=== PATIENT | female | born 1965 | race Caucasian/White ===

== ENCOUNTER 2020-01-01 13:47 | Outpatient (CLI) | payer OTHER, SELFPAY ==
[2020-01-01 15:10] LABS: Blood Urea Nitrogen 27 mg/dL (7-17); Carbon Dioxide 25 mmol/L (22-30); Chloride 103 mmol/L (98-107); Cholesterol 175 mg/dL (0-200); Estimated Glomerular Filt Rate 47; Glucose 114 mg/dL (65-105); HDL Direct 59 mg/dL; Potassium 4.2 mmol/L (3.4-5.0); Sodium 142 mmol/L (137-145); Triglycerides 110 mg/dL (<150)
[2020-01-01 15:21] LABS: LDL Cholesterol Direct 84 mg/dL
[2020-01-01 15:44] LABS: Vitamin D 25 Hydroxy 69.9 ng/mL
== END 2020-01-01 13:48 | disposition home or self-care (01) ==
PROVIDERS: PCP Internal Medicine; Visit Provider Internal Medicine
DX: I10 Essential (primary) hypertension (principal); E55.9 Vitamin D deficiency, unspecified; E78.5 Hyperlipidemia, unspecified
CPT/HCPCS: 36415; 80048; 80061; 82306

== ENCOUNTER 2020-11-08 13:13 | Inpatient (IN) | payer OTHER, SELFPAY ==
[2020-11-08] VITALS (26 sets, daily range): BP systolic 90–111; BP diastolic 44–62; PULSE 69–83; RESP 10–24; TEMP 36.4–36.7; O2SAT 92–100; BMI 68.3
--- NOTE | ~2020-11-08 | CT_ITS ---
EXAMINATION: CT abdomen pelvis w con EXAM DATE: 11/08/2020 15:00 INDICATION: Vaginal bleeding. Abnormal ultrasound. TECHNIQUE: Spiral CT of the abdomen and pelvis was performed following intravenous injection of 100 m L Omnipaque 350. Axial, coronal and sagittal images were reviewed. The dose-length product (DLP) fo r this examination was 1724.86 mGy-cm. The exposure was tailored according to patient size (auto mA exposure control), and iterative reconstruction (ASIR) was used as additional dose reduction techniqu e. There is no prior study for comparison. FINDINGS: The liver, spleen, adrenal glands and pancreas are unremarkable. Gallbladder is unremarkab le. No biliary obstruction. Portal and splenic veins are patent. Kidneys enhance symmetrically. T here is no hydronephrosis. Multiple right calyceal stones, largest in an inferior calyx measuring 9 m m. No ureteral stones. Several punctate left calyceal stones. There is moderate chronic appearing rig ht renal atrophy. The uterus is anteverted and morphologically normal. There is an 8 cm left ovarian teratoma, stable or minimally increased in size compared to previous exam. The bladder is unremarka ble. There is no retroperitoneal or pelvic lymphadenopathy. There is mild scattered arteriosclerot ic disease. Small umbilical fat-containing hernia. The appendix is normal. The stomach and small bowel are unremarkable. There is expected amount of c olonic stool. No free intraperitoneal gas. The heart is normal in size. There are no pericardial or pleural effusions. Faint chronic basilar mosaic attenuation unchanged, could be mild air trappin g. There are no osteoblastic or osteolytic lesions identified. IMPRESSION: 1. Bilateral nephrolithiasis, larger stone burden on the right. 2. Chronic moderate right renal atrophy. 3. Left ovarian dermoid. 4. Small hiatal hernia. 5. Small umbilical hernia. Reviewed, dictated and finalized at location A. CT MARKETING REPRESENTATIVE
--- NOTE | ~2020-11-08 | US_ITS ---
EXAMINATION: US pelvic complete DATE: 11/08/2020 14:31 INDICATION: Vaginal bleeding. History of oophorectomy, although patient is unsure which ovary was rem daniella. Comparison:Ultrasound dated 06/25/2017 TECHNIQUE: Multiple transabdominal sonographic images of the pelvis performed. FINDINGS: The uterus measures 7.9 x 3.8 x 3.6 cm. Study is extremely limited by patient body habitus. The endometrium is not visualized for measurement. The ovaries are not identified,. There is a hypoechoic structure in the left adnexa measuring 6.1 x 6 x 5.1 cm, possibly ovarian. This mass is not well characterized. There is no free fluid in the pelvis. There are no abnormal masses seen on either side. IMPRESSION: 1. Limited examination by patient body habitus. 6.1 cm left adnexal hypoechoic mass, possibly ovarian . Consider correlation with contrast-enhanced CT. Reviewed, dictated and finalized at location A. ND OPERATIONS SUPERINTENDENT IMPRESSION: 1. Limited examination by patient body habitus. 6.1 cm left adnexal hypoechoic mass, possibly ovarian. Consider correlation with contrast-enhanced CT.
--- NOTE | ~2020-11-08 | CT_ITS ---
EXAMINATION: CT BRAIN W/O DATE: 11/08/2020 14:08 INDICATION: Dizziness. History of seizure. Stroke. TECHNIQUE: Computed tomography (CT) of the head was performed without intravenous contrast. The dose- length product was 605.33 mGy-cm. The mA was adjusted according to patient size. Iterative reconstruc tion technique was employed. COMPARISON: No prior studies for comparison. FINDINGS: Normal brain parenchymal volume for age. Normal emmanuel-white differentiation. No acute intrac ranial hemorrhage, infarction, mass or mass effect. No ventriculomegaly or midline shift. Midline sagittal images demonstrate a normal corpus callosum, c raniovertebral junction and sella turcica. Basilar cisterns are patent. Paranasal sinuses and mastoids are pneumatized. No depressed skull fractures. IMPRESSION: 1. No acute intracranial abnormality. Reviewed, dictated and finalized at location A. IAN HISTORY PROFESSOR
[2020-11-08] MEDS: SODIUM CHLORIDE 0.9% IV 1,000 ML 999 ML IV CONT (13:53)
[2020-11-08 14:03] LABS: Basophils Percent Auto 0.4 % (0.2-1.2); Eosinophils Absolute Auto 0.2 K/mm3 (0-0.3); Eosinophils Percent Auto 1.7 % (0-4.4); Immature Granulocyte Absolute 0.04 K/mm3 (0.00-0.031); Immature Granulocyte Percent A 0.4 % (0-0.5); Lymphocytes Absolute Auto 1.29 K/mm3 (0.9-3.2); Lymphocytes Percent Auto 13.6 % (18.3-44.2); Mean Corpuscular HGB Conc 30.5 g/dl (32-36); Mean Corpuscular Hemoglobin 30.8 pg (26-34); Mean Corpuscular Volume 101.2 fl (80-100); Mean Platelet Volume 9.7 fl (7.4-10.4); Monocytes Absolute Auto 0.8 K/mm3 (0.1-0.6); Neutrophils Absolute Auto 7.2 K/mm3 (1.3-6.7); Neutrophils Percent Auto 75.9 % (45.5-73.1); Nucleated Red Blood Cells Perc 0.3 % (0.0-0.2); Platelet Count Result 319 k/mm3 (150-375); Red Blood Count 1.72 M/mm3 (4.2-5.4); Red Cell Distribution Width 14.3 % (11.5-14.5); White Blood Count 9.5 K/mm3 (4.5-10.0)
[2020-11-08 14:06] LABS: Hematocrit 17.4 % (37.0-47.0); Hemoglobin 5.3 g/dL (12.0-15.0)
[2020-11-08 14:11] LABS: Add Urine Microscopic? YES; Appearance Urine Clear (Clear); Bacteria Urine Trace /hpf; Bilirubin Urine Negative (Negative); Blood Urine 1+ (Negative); Color Urine Straw (Yellow); Glucose Urine UA Negative (Negative); Hyaline Casts Urine 20-29 /lpf; Ketones Urine Negative (Negative); Leukocyte Esterase Ur Negative LEU/UL (Negative); Mucus Urine Rare /lpf; Nitrate Urine Negative (Negative); Protein Urine Negative (Negative); Squamous Epithelial Cell Urine Occasional /hpf (Few); Urobilinogen Urine Negative mg/dL (<2.0); WBC Urine 0-3 /hpf
[2020-11-08 14:14] LABS: INR 1.6; Partial Thromboplastin Time 29.1 SECONDS (22.3-36.8); Prothrombin Time 19.8 Seconds (11.1-14.7)
[2020-11-08 14:16] LABS: Alanine Aminotransferase 14 U/L (4-35); Albumin Level 2.9 g/dL (3.5-5.1); Alkaline Phosphatase 60 U/L (38-126); Anion Gap 4 mmol/L (8-16); Aspartate Amino Transferase 33 U/L (14-36); Bilirubin,Total 0.3 mg/dL (0.2-1.3); Blood Urea Nitrogen 30 mg/dL (7-17); Calcium 8.2 mg/dL (8.4-10.2); Carbon Dioxide 28 mmol/L (22-30); Chloride 104 mmol/L (98-107); Estimated CRCL calculation 84 ml/min; Estimated Glomerular Filt Rate 58; Glucose 131 mg/dL (65-105); Potassium 4.8 mmol/L (3.4-5.0); Sodium 136 mmol/L (137-145)
--- NOTE | 2020-11-08 15:09 | PC.NURSE ---
JAIME Downey aware that orthostatic vs have not been taken. He states that they may be deferred to later time
--- NOTE | 2020-11-08 15:56 | ED.ABDPAIN ---
HPI - Abdominal Pain General Chief Complaint: Vaginal Bleeding <Shayan Sauceda PA-C - Last Filed: 11/08/20 17:15> Stated Complaint: Vag bleed <FRENCH Granado Last Filed: 11/08/20 17:15> Time Seen by Provider: 11/08/20 13:18 <FRENCH Granado Last Filed: 11/08/20 17:15> Source: patient, family and EMS <FRENCH Granado Last Filed: 11/08/20 17:15> Mode of arrival: EMS <FRENCH Granado Last Filed: 11/08/20 17:15> Limitations: no limitations <FRENCH Granado Last Filed: 11/08/20 17:15> History of Present Illness HPI narrative: Patient is a 55-year-old female who presents with fatigue and vaginal bleeding over the course of the last month has been going through 2 or 3 pads a day patient is currently on Eliquis patient notes that she has felt slightly lightheaded. Patient is followed by Dr. Agudelo and cardiology patient is on Eliquis for history of pulmonary embolism patient know she has passed clots and had periods of heavier bleeding throughout the month but is currently going through maybe 2 or 3 pads a day patient on arrival denying any pain. Patient denies any syncope injury or trauma or other illnesses presents for EMS from home where she lives with her mother <FRENCH Granado Last Filed: 11/08/20 17:15> Related Data Home Medications: Home Medications Medication Instructions Recorded Confirmed acetaminophen 325 mg capsule 325 mg PO Q6H PRN 12/20/19 apixaban 5 mg tablet 5 mg PO BID 12/20/19 carvedilol phosphate 80 mg 80 mg PO DAILY 12/20/19 capsule,[id number] multiphase cholecalciferol (vitamin D3) 50 2,000 unit PO DAILY 12/20/19 mcg (2,000 unit) capsule furosemide 40 mg tablet 40 mg PO QAM 12/20/19 gabapentin 300 mg capsule 300 mg PO TID 12/20/19 phentermine 37.5 mg tablet 37.5 mg PO DAILY 12/20/19 topiramate 100 mg tablet 200 mg PO DAILY 12/20/19 atorvastatin DAILY 11/08/20 ferrous sulfate mg DAILY 11/08/20 lisinopril DAILY 11/08/20 <Shayan Sauceda PA-C - Last Filed: 11/08/20 17:15> Allergies/Adverse Reactions: Allergies Allergy/AdvReac Type Severity Reaction Status Date / Time latex Allergy Intermediate Hives Verified 11/08/20 13:19 <Shayan Sauceda PA-C - Last Filed: 11/08/20 17:15> Review of Systems Review of Systems: All systems reviewed & are unremarkable except as noted in HPI and below <Shayan Sauceda PA-C - Last Filed: 11/08/20 17:15> [facility] Social History Social History: Social History Smoking status: Never smoker Alcohol intake: never Gender identity (if verbalized by the patient): Female <Shayan Sauceda PA-C - Last Filed: 11/08/20 17:15> Exam Narrative: Exam Narrative: GENERAL: Well-appearing, morbidly obese, and in no acute distress. HEAD: Normocephalic, atraumatic. EYES: PERRLA and EOMI. ENT: Nares clear, no rhinorrhea or epistaxis. Mucous membranes moist. CHEST: Clear to auscultation. No respiratory distress. No wheezes rales or rhonchi HEART: Regular rate and rhythm. No murmur heard. Normal peripheral pulses. ABDOMEN: Soft, nontender, nondistended FEMALE GENITOURINARY: No heavy vaginal bleeding noted EXTREMITIES: Normal range of motion. No edema. SKIN: Warm, dry, no rash. NEURO: No focal deficits. Alert and oriented x3. PSYCH: Normal mood and affect. <Shayan Sauceda PA-C - Last Filed: 11/08/20 17:15> Course Course Emergency Course: Patient in the room in no distress has been transfused blood in the emergency department for her anemia likely attributed to her vaginal bleeding discussions were made with gynecology cardiology and hospitalist service patient will be having her Eliquis held will be admitted by the hospitalist and will be evaluated by gynecology. Patient hemodynamically stable in no distress at this time agreeing to stay in hospital <JAIME Granado
[2020-11-08] MEDS: SODIUM CHLORIDE 0.9% IV 250 ML 30 ML IV CONT (16:01)
[2020-11-08] MEDS: TUBING, BLOOD SET 1 EACH XX (16:01)
--- NOTE | 2020-11-08 18:02 | PC.NURSE ---
pt carlie unit #1 well without s/s transfusion reaction.
--- NOTE | 2020-11-08 18:43 | PC.NURSE ---
1830-attempted to call report to 2 medical. informed rn busy in pt room. informed rn will call back in 5 mins. 184-have not rec'd call back from 2nd medical. pt awaiting meal to be delivered to ed room 19. unit 1 complete without reaction or difficulties. unit 2 to be started after transport to floor.
--- NOTE | 2020-11-08 19:03 | PC.NURSE ---
report call to juan qiu at this time. will transport to floor at approx 1930
--- NOTE | 2020-11-08 20:01 | ADMGEN ---
This patient, Phoebe Blakcburn, was admitted to Medical Room 244-01 at 1999. Patient/family oriented to hospital policies and general routines including ID bracelet, bed and alarms, visiting hours, pain management, procedures, bathroom and other care routines, personal items, smoking policy, room service/diet, and visiting hours. Information on how to activate the Rapid Response Team has been discussed. Patient/Family are encouraged to report perceived risks to care and to ask questions if they do not understand what they are told or what they should do.
[2020-11-08] MEDS: SODIUM CHLORIDE 0.9% IV 100 ML 30 ML (21:25)
[2020-11-08] MEDS: FAMOTIDINE 20 MG/2 ML VIAL IV PUSH (23:09)
[2020-11-09] VITALS (11 sets, daily range): BP systolic 92–116; BP diastolic 44–72; PULSE 71–83; RESP 16–21; TEMP 36.1–37.1; O2SAT 98–100
[2020-11-09 05:58] LABS: Basophils Absolute Auto 0.1 K/mm3 (0.0-0.1); Basophils Percent Auto 0.7 % (0.2-1.2); Eosinophils Absolute Auto 0.2 K/mm3 (0-0.3); Eosinophils Percent Auto 2.6 % (0-4.4); Hematocrit 21.6 % (37.0-47.0); Immature Granulocyte Absolute 0.04 K/mm3 (0.00-0.031); Immature Granulocyte Percent A 0.5 % (0-0.5); Lymphocytes Absolute Auto 2.47 K/mm3 (0.9-3.2); Lymphocytes Percent Auto 27.8 % (18.3-44.2); Mean Corpuscular HGB Conc 31.9 g/dl (32-36); Mean Corpuscular Hemoglobin 30.7 pg (26-34); Mean Platelet Volume 9.5 fl (7.4-10.4); Monocytes Absolute Auto 1.1 K/mm3 (0.1-0.6); Neutrophils Percent Auto 56.4 % (45.5-73.1); Nucleated Red Blood Cells Perc 0.3 % (0.0-0.2); Platelet Count Result 309 k/mm3 (150-375); Red Blood Count 2.25 M/mm3 (4.2-5.4); Red Cell Distribution Width 15.4 % (11.5-14.5); White Blood Count 8.9 K/mm3 (4.5-10.0)
[2020-11-09 06:03] LABS: Hemoglobin 6.9 g/dL (12.0-15.0)
[2020-11-09 06:23] LABS: Alanine Aminotransferase 11 U/L (4-35); Albumin Level 2.6 g/dL (3.5-5.1); Alkaline Phosphatase 64 U/L (38-126); Anion Gap 1 mmol/L (8-16); Aspartate Amino Transferase 23 U/L (14-36); Bilirubin,Total 0.3 mg/dL (0.2-1.3); Blood Urea Nitrogen 24 mg/dL (7-17); Calcium 7.9 mg/dL (8.4-10.2); Carbon Dioxide 31 mmol/L (22-30); Chloride 106 mmol/L (98-107); Estimated CRCL calculation 92 ml/min; Estimated Glomerular Filt Rate > 60; Glucose 113 mg/dL (65-105); Potassium 4.1 mmol/L (3.4-5.0); Sodium 138 mmol/L (137-145)
[2020-11-09] MEDS: SODIUM CHLORIDE 0.9% IV 250 ML 30 ML IV CONT (07:00)
[2020-11-09] MEDS: THERAPEUTIC MULTIVITAMINS/MINERALS TAB (*BKC) 1 TABLET PO (09:33)
[2020-11-09] MEDS: CHOLECALCIFEROL 1,000 UNITS TABLET 2000 UNITS PO (09:33)
[2020-11-09] MEDS: ATORVASTATIN 40 MG TABLET PO (09:34)
[2020-11-09] MEDS: FUROSEMIDE 40 MG TABLET PO (09:34)
[2020-11-09] MEDS: GABAPENTIN 100 MG CAPSULE PO ×3 (09:34→16:54)
[2020-11-09] MEDS: FAMOTIDINE 20 MG/2 ML VIAL IV PUSH ×2 (09:35→20:06)
--- NOTE | 2020-11-09 09:36 | WPDCN ---
Assessment and Plan Assessment and plan (1) Postmenopausal bleeding: Code(s): N95.0 - Postmenopausal bleeding Status: Acute (2) Ovarian mass: Code(s): N83.8 - Other noninflammatory disorders of ovary, fallopian tube and broad ligament Status: Acute Additional Plan 1. Agree with stopping Eliquis at this point. Restarting a will be deferred per Cardiology/ hospitalist. 2. Provera 10 mg b.i.d. to be continued for 10 days. 3. Will need endometrial sampling in the office in the next 7-14 days. I discussed with the patient at length she states good understanding and agrees to call otherwise meds office early this week upon discharge to set this appointment up. If she encounters any issues with this or difficulty having it done and a short period of time she is to call my office and we will of facilitate getting this procedure performed for her. 4. After endometrial sampling will likely need referral to manager credit collections Oncology as she is certainly a great risk for endometrial hyperplasia and/or endometrial cancer. At that time I would suspect that the ovary will be dealt with as well. Again I discussed this at length with the patient she states good understanding and agrees to have this process initiated in the very near future so she can have this problem taking care of and stabilize her condition. HPI Data of Consult Date/Time: 11/09/20 09:36 Requesting Physician: Erik Rivera MD Primary Care Provider: Yamil Rankin DO Consult Narrative Narrative: Phoebe Blackburn is a 55 year old female admitted for vaginal bleeding and anemia. She states that she became menopausal in 2017 during which she only had spotting during that year which her customizer attributed to her Eliquis medication. Beginning in 2018 she began to have what she considered regular periods and this has continued until current. Especially over the last 4-6 weeks has increased in amount. She does also relate symptoms from her anemia as far as shortness of breath clotting mentation and fatigue which also she states she does have under fairly regular basis as well. Regarding prior gynecologic issues she states she did have and ablation which I am not sure was in endometrial ablation or uterine artery embolization. Regardless she states [facility] provider that performed the procedure stated it did not go as well as they had hoped and her bleeding did improve but did not stop. She has no history of childbearing. 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 CT scan on admission shows a ovarian tumor but this is unchanged from 2017. She states that since being admitted for bleeding seems to have slowed down though she is still passing small clots. Review of Systems Review of Systems: All systems reviewed & are unremarkable except as noted in HPI and below PMFSH Family History Family History Other Unknown family medical history Social History Social History Smoking status: Never smoker Alcohol intake: never Substance use: never Substance use type: does not use Gender identity (if verbalized by the patient): Female Spiritual care concerns: No Meds Home Medications and Allergies Home Medications Medication Instructions Recorded Confirmed Type apixaban 5 mg tablet 5 mg PO BID 12/20/19 11/08/20 History carvedilol phosphate 80 mg 80 mg PO DAILY 12/20/19 11/08/20 History capsule,[id number] multiphase cholecalciferol (vitamin D3) 50 2,000 unit PO DAILY 12/20/19 11/08/20 History mcg (2,000 unit) capsule furosemide 40 mg tablet 40 mg PO QAM 12/20/19 11/08/20 History phentermine 37.5 mg tablet 37.5 mg PO DAILY 12/20/19 11/08/20 History topiramate 100 mg tablet 200 mg PO HS 12/20/19 11/08/20 History atorvastatin 40 mg DAILY 11/08/20 11/08/20 History ferrous sulfate 325
[2020-11-09 12:56] LABS: Hematocrit 24.8 % (37.0-47.0); Hemoglobin 8.1 g/dL (12.0-15.0); Mean Corpuscular HGB Conc 32.7 g/dl (32-36); Mean Platelet Volume 9.4 fl (7.4-10.4); Platelet Count Result 295 k/mm3 (150-375); Red Blood Count 2.61 M/mm3 (4.2-5.4); Red Cell Distribution Width 15.5 % (11.5-14.5); White Blood Count 7.7 K/mm3 (4.5-10.0)
--- NOTE | 2020-11-09 16:51 | PM.IMHP ---
H&P: HPI History of Present Illness Date/Time: 11/09/20 16:51 Chief Complaint: Lightheadedness with vaginal bleeding Narrative: Date of visit 11/09/2020 0900. Phoebe Blackburn is a 55 year old female G0 para 0 with hypertension and history of postmenopausal bleeding. She had had a uterine ablation in distant past and was hospitalized here in 2017 for vaginal bleeding and transferred to [place] for possible arterial embolization. States she has had spotting intermittently since that time on anticoagulants but in August and September of this year had full 7 day periods with heavy flow. Early October menstrual flow started again with clotting and has persisted. She is feeling lightheaded, had was pounding, and some shortness of breath so she contacted the ambulance and came to the hospital for evaluation where she was found to have a hemoglobin of 5.9. She is admitted for transfusion and evaluation. Review of Systems Review of Systems: Narrative: Constitutional weight has been steady appetite good with no fever chills Eye no double vision scotoma Mouth no pharyngitis laryngitis Pulmonary no wheezing or cough CV no chest pain or palpitation GI no melena hematochezia or diarrhea no dysuria no hematuria Muscle skeletal no particular joint discomfort Integument no skin breakdown or rashes Neuropsych no seizures no syncope PMFSH Past Medical History Medical History (Updated 11/09/20 @ 16:59 by Erik Rivera MD) Anemia Hx of renal calculi Hyperlipidemia, unspecified Hypertension Lymphedema, not elsewhere classified Ovarian mass Personal history of pulmonary embolism Surgical History Surgical History (Updated 11/09/20 @ 16:59 by Erik Rivera MD) History of oophorectomy, unilateral S/P patent foramen ovale closure Family History Family History (Updated 11/09/20 @ 17:01 by Erik Rivera MD) Mother Carcinoma of colon Father , Age 85, Lewy body dementia Lewy body dementia Other Unknown family medical history Social History Social History (Updated 11/09/20 @ 17:02 by rEik Rivera MD) Social History: Never and lives with her mother Smoking status: Never smoker Alcohol intake: never Substance use: never Substance use type: does not use Gender identity (if verbalized by the patient): Female Spiritual care concerns: No Meds Home Medications and Allergies Home Medications Medication Instructions Recorded Confirmed Type apixaban 5 mg tablet 5 mg PO BID 12/20/19 11/08/20 History carvedilol phosphate 80 mg 80 mg PO DAILY 12/20/19 11/08/20 History capsule,[id number] multiphase cholecalciferol (vitamin D3) 50 2,000 unit PO DAILY 12/20/19 11/08/20 History mcg (2,000 unit) capsule furosemide 40 mg tablet 40 mg PO QAM 12/20/19 11/08/20 History phentermine 37.5 mg tablet 37.5 mg PO DAILY 12/20/19 11/08/20 History topiramate 100 mg tablet 200 mg PO HS 12/20/19 11/08/20 History atorvastatin 40 mg DAILY 11/08/20 11/08/20 History ferrous sulfate 325 mg PO DAILY 11/08/20 11/08/20 History gabapentin 100 mg PO TID 11/08/20 11/08/20 History lisinopril 40 mg PO DAILY 11/08/20 11/08/20 History [id number]-Oa-asqz-minerals 1 tablet PO DAILY 11/08/20 11/08/20 History [Women's Multiple Vitamins] tramadol 50 mg tablet 50 mg PO Q8H PRN #90 tablet 11/08/20 11/08/20 Rx Allergies Allergy/AdvReac Type Severity Reaction Status Date / Time latex Allergy Intermediate Hives Verified 11/08/20 13:19 Vital Signs Vital Signs - 24 hr 11/08/20 17:00 11/08/20 17:16 11/08/20 17:59 Temperature 36.6 C 36.6 C 36.6 C Pulse Rate 83 74 69 Respiratory Rate 20 15 15 Blood Pressure 97/47 L 100/45 L 92/53 L Pulse Oximetry 97 100 97 11/08/20 18:55 11/08/20 21:25 11/08/20 21:40 Temperature 36.4 C 36.6 C Pulse Rate 69 75 80 Respiratory Rate 14 20 20 Blood Pressure 102/44 L 94/48 L 92/50 L Pulse Oximetry 95 98 98 11/08/20 22:25 11/08/20 23:25 11/09/20 00
[2020-11-09] MEDS: TOPIRAMATE 100 MG TABLET 200 MG PO (20:11)
[2020-11-09] MEDS: ACETAMINOPHEN 325 MG TABLET 650 MG PO (20:15)
[2020-11-10] MEDS: ACETAMINOPHEN 325 MG TABLET 650 MG PO (05:30)
[2020-11-10 06:00] VITALS: BP 117/67; PULSE 73; RESP 20; TEMP 36.8; O2SAT 99
[2020-11-10 06:06] LABS: Basophils Absolute Auto 0.1 K/mm3 (0.0-0.1); Basophils Percent Auto 0.6 % (0.2-1.2); Eosinophils Absolute Auto 0.3 K/mm3 (0-0.3); Eosinophils Percent Auto 3.5 % (0-4.4); Hematocrit 26.9 % (37.0-47.0); Hemoglobin 8.3 g/dL (12.0-15.0); Immature Granulocyte Absolute 0.05 K/mm3 (0.00-0.031); Immature Granulocyte Percent A 0.6 % (0-0.5); Lymphocytes Absolute Auto 1.66 K/mm3 (0.9-3.2); Lymphocytes Percent Auto 20.8 % (18.3-44.2); Mean Corpuscular HGB Conc 30.9 g/dl (32-36); Mean Corpuscular Hemoglobin 30.3 pg (26-34); Mean Corpuscular Volume 98.2 fl (80-100); Mean Platelet Volume 9.3 fl (7.4-10.4); Monocytes Absolute Auto 0.8 K/mm3 (0.1-0.6); Monocytes Percent Auto 9.7 % (2.6-8.5); Neutrophils Absolute Auto 5.2 K/mm3 (1.3-6.7); Neutrophils Percent Auto 64.8 % (45.5-73.1); Nucleated Red Blood Cells Perc 0.3 % (0.0-0.2); Platelet Count Result 323 k/mm3 (150-375); Red Blood Count 2.74 M/mm3 (4.2-5.4); Red Cell Distribution Width 15.6 % (11.5-14.5)
[2020-11-10 06:34] LABS: Anion Gap 2 mmol/L (8-16); Blood Urea Nitrogen 20 mg/dL (7-17); Calcium 8.1 mg/dL (8.4-10.2); Carbon Dioxide 31 mmol/L (22-30); Chloride 105 mmol/L (98-107); Estimated CRCL calculation 92 ml/min; Estimated Glomerular Filt Rate > 60; Glucose 115 mg/dL (65-105); Sodium 138 mmol/L (137-145)
[2020-11-10] MEDS: ATORVASTATIN 40 MG TABLET PO (08:24)
[2020-11-10] MEDS: THERAPEUTIC MULTIVITAMINS/MINERALS TAB (*BKC) 1 TABLET PO (08:24)
[2020-11-10] MEDS: FUROSEMIDE 40 MG TABLET PO (08:24)
[2020-11-10] MEDS: GABAPENTIN 100 MG CAPSULE PO (08:24)
[2020-11-10] MEDS: CHOLECALCIFEROL 1,000 UNITS TABLET 2000 UNITS PO (08:24)
[2020-11-10] MEDS: FAMOTIDINE 20 MG/2 ML VIAL IV PUSH (08:24)
[2020-11-10 10:00] VITALS: BP 130/63; PULSE 80; RESP 18; TEMP 36.9; O2SAT 98
--- NOTE | 2020-11-10 18:07 | PM.DS ---
DS: Admitting Diagnosis Admitting Diagnosis Admitting Diagnosis: symtomatic chronic blood loss anemia DS: Discharge Diagnosis Discharge Diagnosis (1) Abnormal vaginal bleeding: Code(s): N93.9 - Abnormal uterine and vaginal bleeding, unspecified Status: Acute Assessment and Plan: As per retail sales teammate will need endometrial sampling given her risk factors for uterine carcinoma. Progesterone b.i.d. for 10 days per retail sales teammate. Will initially hold her anticoagulant and restart 11/12 CT scan of the abdomen and pelvis revealed no very and lesion unchanged from 2017 but no endometrial hyperplasia or other lesions were seen on CT or ultrasound (2) Anemia: Code(s): D64.9 - Anemia, unspecified Status: Acute Assessment and Plan: Chronic blood loss anemia. Iron level and iron stores adequate per serum levels. After 3 units of packed cells hemoglobin med 8.1 and remained steady at 8.3 day of discharge 11/10 (3) Hypertension: Code(s): I10 - Essential (primary) hypertension Status: Acute Assessment and Plan: Blood pressure toward the low side and held her beta-marlin and CEDRICK-inhibitor initially. Beta-marlin was reinstituted had discharge and she was instructed to follow-up with her primary care before restarting her CEDRICK-inhibitor (4) Personal history of pulmonary embolism: Code(s): Z86.711 - Personal history of pulmonary embolism Status: Acute Assessment and Plan: Initially held her apixaban but with bleeding subsiding and hemoglobin stable after 3 units of packed cells, we instructed her to restart her anticoagulant 11/12/2020 (5) Lymphedema, not elsewhere classified: Code(s): I89.0 - Lymphedema, not elsewhere classified Status: Acute Assessment and Plan: Has lymphedema pumps at home which she uses (6) Hyperlipidemia, unspecified: Code(s): E78.5 - Hyperlipidemia, unspecified Status: Acute Assessment and Plan: Continue her statin DS: Summary Hospital Course Hospital Course: Date of discharge 11/10/2020 55-year-old hypertensive female with chronic anticoagulation due to recurrent pulmonary emboli admitted with recurrent vaginal bleeding. Has had similar episodes in the past. Hemoglobin had dropped to 5.9 and after 3 units of packed cells with steady at 8.1 and 24 hours later 8.3. Vaginal bleeding subsided. She was seen by retail sales teammate who started her on Provera 10 mg b.i.d. and she will follow-up with her retail sales teammate for probable endometrial sampling. CT scan of the pelvis and pelvic sonogram did not detect any endometrial hyperplasia but limited due to body habitus She will have a CBC drawn within the next 1-2 weeks also. Blood pressure was soft and CEDRICK-inhibitor was held the discharge to be restarted after sees primary care Time Spent with Patient Time attestation: Total time spent providing and/or coordinating discharge services: 35 minutes Exam Narrative: Exam Narrative: Condition on discharge Blood pressure 132/62 pulse is 80 saturating 98% on room air afebrile Lungs clear CV regular rate rhythm Abdomen soft nontender Extremities no pitting edema She was alert pleasant cooperative and vaginal bleeding had subsided. Hemoglobin was stable and she was in stable condition able to be discharged home DS: Data Data Completed and Pending Labs on day of discharge: Labs from last 24 hours 11/10/20 11/10/20 05:20 05:20 WBC 8.0 RBC 2.74 L Hgb 8.3 L Hct 26.9 L MCV 98.2 MCH 30.3 MCHC 30.9 L RDW 15.6 H Plt Count 323 MPV 9.3 Immature Gran % (Auto) 0.6 H Neut % (Auto) 64.8 Lymph % (Auto) 20.8 [place] % (Auto) 9.7 H Eos % (Auto) 3.5 Baso % (Auto) 0.6 Lymph # (Auto) 1.66 [place] # (Auto) 0.8 H Eos # (Auto) 0.3 Baso # (Auto) 0.1 Abs Immat Gran (auto) 0.05 H Absolute Neuts (auto) 5.2 Absolute Nucleated RBC 0.0 Nucleated RBC % 0.3 H Sodium 138 Potassium 4.0 Chloride 105 Carbon Dioxide 31 H Anion Gap 2
== END 2020-11-10 12:10 | disposition home or self-care (01) | DRG 760 ==
LOC: ANHED 17:15 → ANH2MED 18:11
PROVIDERS: Emergency Medicine Emergency Medical Services; Admitting Provider Internal Medicine; Emergency Provider Emergency Medicine; PCP Internal Medicine; Visit Provider Internal Medicine
DX: N93.9 Abnormal uterine and vaginal bleeding, unspecified (principal); Z68.44 Body mass index [BMI] 60.0-69.9, adult; E66.01 Morbid (severe) obesity due to excess calories; N95.0 Postmenopausal bleeding; D50.0 Iron deficiency anemia secondary to blood loss (chronic); N83.8 Other noninflammatory disorders of ovary, fallopian tube and broad ligament; I89.0 Lymphedema, not elsewhere classified; I10 Essential (primary) hypertension; E78.5 Hyperlipidemia, unspecified; Z23 Encounter for immunization; Z86.711 Personal history of pulmonary embolism; Z79.01 Long term (current) use of anticoagulants; Z87.442 Personal history of urinary calculi; Z90.721 Acquired absence of ovaries, unilateral
CPT/HCPCS: 36415; 36430; 51701; 70450; 74177; 76856; 80048; 80053; 81001; 85025; 85027; 85610; 85730; 86850; 86900; 86901; 86920; 90471; 90653; 96360; 96361; 96374; 99285; A9270; G0008; G0378; J7030; J7050; P9016; Q9967

== ENCOUNTER 2020-11-27 14:25 | Inpatient (IN) | payer OTHER, SELFPAY ==
[2020-11-27] VITALS (18 sets, daily range): BP systolic 93–122; BP diastolic 50–65; PULSE 66–97; RESP 10–39; TEMP 36.6–37.1; O2SAT 96–100; BMI 66.2
--- NOTE | 2020-11-27 14:34 | ED.WEAKNESS ---
HPI - Weakness General Chief complaint: Vaginal Bleeding Stated complaint: VAG BLEEDING Time Seen by Provider: 11/27/20 14:26 Source: patient and EMS Mode of arrival: wheelchair Limitations: no limitations History of Present Illness HPI Narrative: Patient is a 55 year old female G0 para 0 with a history of hypertension, postmenopausal bleeding, recently admitted to this facility for vaginal bleeding. Patient returns today for evaluation of continued vaginal bleeding. Patient states she started to have heavy vaginal bleeding last night. She had restarted her anticoagulation on 11/12. Patient had been followed by Dr. James while in the hospital. Dr. Pascal was OBGYN in the past. She was noted to be anemic and was transfused 3 units PRBCs but then bleeding subsided, was taking oral provera, she was hemodynamically stable and did not require any surgical interventions. Per chart review, the patient has had a uterine ablation in the past as well as oophorectomy. Patient had been doing well outpatient until last night. Related Data Home Medications Medication Instructions Recorded Confirmed apixaban 5 mg tablet 5 mg PO BID 12/20/19 11/08/20 carvedilol phosphate 80 mg 80 mg PO DAILY 12/20/19 11/08/20 capsule,[id number] multiphase cholecalciferol (vitamin D3) 50 2,000 unit PO DAILY 12/20/19 11/08/20 mcg (2,000 unit) capsule furosemide 40 mg tablet 40 mg PO QAM 12/20/19 11/08/20 phentermine 37.5 mg tablet 37.5 mg PO DAILY 12/20/19 11/08/20 topiramate 100 mg tablet 200 mg PO HS 12/20/19 11/08/20 atorvastatin 40 mg DAILY 11/08/20 11/08/20 ferrous sulfate 325 mg PO DAILY 11/08/20 11/08/20 gabapentin 100 mg PO TID 11/08/20 11/08/20 lisinopril 40 mg PO DAILY 11/08/20 11/08/20 [id number]-[id number]-minerals 1 tablet PO DAILY 11/08/20 11/08/20 Allergies Allergy/AdvReac Type Severity Reaction Status Date / Time latex Allergy Intermediate Hives Verified 11/27/20 15:34 Review of Systems Review of Systems: Narrative: CONSTITUTIONAL: Denies fever, chills, or sweats. EYES: Denies visual changes, redness, or discharge. ENT: Denies rhinorrhea, congestion, sore throat, or otalgia. CARDIOVASCULAR: Denies chest pain, palpitations, or edema. RESPIRATORY: Denies cough or dyspnea. GASTROINTESTINAL: Denies abdominal pain, nausea, vomiting, or diarrhea. GENITOURINARY: Denies dysuria or hematuria. Reports vaginal bleeding. SKIN: Denies rash or itching. MUSCULOSKELETAL: Denies back pain, joint pain, or myalgia. NEUROLOGIC: Denies headache, numbness, or weakness. [facility] Past Medical History Medical History Anemia Hx of renal calculi Hyperlipidemia, unspecified Hypertension Lymphedema, not elsewhere classified Ovarian mass Personal history of pulmonary embolism Surgical History Surgical History History of oophorectomy, unilateral S/P patent foramen ovale closure Family History Family History Mother Carcinoma of colon Father , Age 85, Lewy body dementia Lewy body dementia Other Unknown family medical history Social History Social History Social History: Never and lives with her mother Smoking status: Never smoker Alcohol intake: never Substance use: never Substance use type: does not use Gender identity (if verbalized by the patient): Female Spiritual care concerns: No Exam Narrative: Exam Narrative: GENERAL: Awake, alert, conversant HEAD: Normocephalic, atraumatic. EYES: PERRLA and EOMI. ENT: Nares clear, no rhinorrhea or epistaxis. Mucous membranes moist. NECK: Supple. CHEST: No respiratory distress, breathing even and non labored HEART: Regular rate, sinus rhythm ABDOMEN:Obese abdomen, Non distended, non tender EXTREMITIES: Normal range of motion. No edema. Atrophy lowe
--- NOTE | 2020-11-27 14:35 | ECG_ITS ---
Measurements Intervals [place] Rate: 84 P: 58 NV: 164 QRS: 23 QRSD: 106 T: 31 QT: 335 QTc: 396 Interpretive Statements SINUS RHYTHM BORDERLINE T WAVE ABNORMALITY- ANT/INF LEADS BASELINE ARTIFACT- I, II, III, AVR, AVL, AVF, V2, V4-V6 BORDERLINE ECG Electronically Signed On 11-27-2020 15:20:17 SCHOOL CLERK by Roberto Guidry D.O.
[2020-11-27] MEDS: SODIUM CHLORIDE 0.9% IV 1,000 ML 999 ML IV CONT (15:02)
[2020-11-27 15:03] LABS: Basophils Percent Auto 0.1 % (0.2-1.2); Eosinophils Absolute Auto 0.1 K/mm3 (0-0.3); Eosinophils Percent Auto 1.2 % (0-4.4); Immature Granulocyte Absolute 0.03 K/mm3 (0.00-0.031); Immature Granulocyte Percent A 0.4 % (0-0.5); Lymphocytes Absolute Auto 1.02 K/mm3 (0.9-3.2); Lymphocytes Percent Auto 14.9 % (18.3-44.2); Mean Corpuscular HGB Conc 28.2 g/dl (32-36); Mean Corpuscular Hemoglobin 29.9 pg (26-34); Mean Platelet Volume 9.4 fl (7.4-10.4); Monocytes Absolute Auto 0.8 K/mm3 (0.1-0.6); Monocytes Percent Auto 11.4 % (2.6-8.5); Neutrophils Absolute Auto 4.9 K/mm3 (1.3-6.7); Nucleated Red Blood Cells Absolute Auto 0.1 K/mm3 (0.0-0.012); Nucleated Red Blood Cells Perc 0.9 % (0.0-0.2); Platelet Count Result 329 k/mm3 (150-375); Red Blood Count 1.34 M/mm3 (4.2-5.4); White Blood Count 6.8 K/mm3 (4.5-10.0)
[2020-11-27 15:13] LABS: Alanine Aminotransferase 11 U/L (4-35); Albumin Level 2.7 g/dL (3.5-5.1); Alkaline Phosphatase 61 U/L (38-126); Anion Gap 5 mmol/L (8-16); Aspartate Amino Transferase 19 U/L (14-36); Bilirubin,Total 0.2 mg/dL (0.2-1.3); Blood Urea Nitrogen 20 mg/dL (7-17); Calcium 7.9 mg/dL (8.4-10.2); Carbon Dioxide 26 mmol/L (22-30); Chloride 106 mmol/L (98-107); Estimated CRCL calculation 69 ml/min; Estimated Glomerular Filt Rate 47; Glucose 122 mg/dL (65-105); Sodium 137 mmol/L (137-145)
[2020-11-27 15:22] LABS: Hematocrit 14.2 % (37.0-47.0)
[2020-11-27 15:36] LABS: Hypochromasia 3+ (NORMAL); Platelet Estimate Adequate (Adequate)
[2020-11-27 15:37] LABS: Anisocytosis 2+ (NORMAL)
[2020-11-27] MEDS: ONDANSETRON INJ 4 MG/2 ML VIAL IV PUSH (16:06)
[2020-11-27] MEDS: SODIUM CHLORIDE 0.9% IV 250 ML 30 ML IV CONT (17:00)
--- NOTE | 2020-11-27 20:55 | ADMGEN ---
This patient, Phoebe Blackburn, was admitted to IMU Room 200-01. Patient/family oriented to hospital policies and general routines including ID bracelet, bed and alarms, visiting hours, pain management, procedures, bathroom and other care routines, personal items, smoking policy, room service/diet, and visiting hours. Information on how to activate the Rapid Response Team has been discussed. Patient/Family are encouraged to report perceived risks to care and to ask questions if they do not understand what they are told or what they should do.
--- NOTE | 2020-11-27 22:41 | PM.IMCN ---
Assessment and Plan Assessment and plan (1) Vaginal bleeding: Code(s): N93.9 - Abnormal uterine and vaginal bleeding, unspecified Status: Acute Assessment and Plan: I had strongly encouraged the patient to see a specialist perhaps at [facility]. The patient stated she has been at [facility] before and could not get any help. The patient is a high risk case. She is on Eliquis for recurrent PEs and DVTs. However she has had a closure device for her PFO. She tells me that her pomologist is Dr. armenta. I question the patient why she was still on Eliquis if her PFO was now closed. I asked her if the open PFO was the cause of her PEs and DVTs and she did not know. She did Not know if she had any further DVTs or PEs since she had the closure of the PFO. Patient really needs to have a long discussion with her pomologist concerning her blood thinner. I am holding her Eliquis for now. The patient tells me that she has been taking her Provera and that she had stopped bleeding for brief period time and then restarted last couple days. The patient just left your on 11/10/2020 I am now her blood count is even lower. The patient stated that she has had an ablation in the past and that helped. The patient asked why she could have a hysterectomy and I explained that it would be high risk since she is on Eliquis and that the Eliquis would be held for the surgery. If in fact she would need a surgery. Again I recommended that she seek a specialist who takes high risk patient's. I also encouraged the patient to have a discussion with her pomologist concerning her blood thinner. Patient is fairly immobile and walks with a Rollator. she is at risk for PE DVT Due to her immobility. if the patient were to require surgery I would recommend consultation with her pomologist.I explained to her with her severe anemia a could not be a good on her heart either. Patient's blood pressure is 100/59 some having to hold but blood pressure medicine. (2) Anemia: Qualifiers: Anemia type: other cause Other causes of anemia: other cause, not classified Qualified Code(s): D64.89 - Other specified anemias Code(s): D64.9 - Anemia, unspecified Status: Acute Assessment and Plan: Patient is getting 2 units of packed blood cells and I suspect that she will probably be receiving more. (3) Ovarian mass: Code(s): N83.8 - Other noninflammatory disorders of ovary, fallopian tube and broad ligament Status: Acute Assessment and Plan: the patient has had a salpingo lobectomy in the past. (4) Hypertension: Code(s): I10 - Essential (primary) hypertension Status: Acute Assessment and Plan: I am holding her lisinopril and Coreg at this time due to her low blood pressure and her Coreg as well. (5) Lymphedema, not elsewhere classified: Code(s): I89.0 - Lymphedema, not elsewhere classified Status: Acute Assessment and Plan: she has severe lymphedema to her lower extremities. May consider referring the patient to a lymphedema clinic. (6) Hyperlipidemia, unspecified: Code(s): E78.5 - Hyperlipidemia, unspecified Status: Acute Assessment and Plan: Continue with patient's atorvastatin and suggest weight loss. (7) Migraine without aura and without status migrainosus, not intractable: Code(s): G43.009 - Migraine without aura, not intractable, without status migrainosus Status: Acute Assessment and Plan: Continue with topiramate. I am holding her Toradol at this time as her blood press HPI Data of Consult Consult date: 11/27/20 Requesting Physician: Marci Duckworth DO Primary Care Provider: Yamil Rankin DO Consult Narrative Narrative: Phoebe Blackburn is a 55 year old female Which just discharged from our hospital on 11/10/2020 were she had been on chronic anticoagulation due to recurrent pulmonary emboli and PEs. The patient did have a
[2020-11-28] VITALS (21 sets, daily range): BP systolic 95–121; BP diastolic 48–65; PULSE 65–85; RESP 16–20; TEMP 36.1–37.2; O2SAT 96–99
[2020-11-28] MEDS: TOPIRAMATE 100 MG TABLET 200 MG PO ×2 (00:21→20:13)
[2020-11-28] MEDS: GABAPENTIN 100 MG CAPSULE PO ×4 (00:21→16:58)
[2020-11-28 01:37] LABS: Basophils Percent Auto 0.3 % (0.2-1.2); Eosinophils Absolute Auto 0.1 K/mm3 (0-0.3); Eosinophils Percent Auto 1.2 % (0-4.4); Immature Granulocyte Absolute 0.03 K/mm3 (0.00-0.031); Immature Granulocyte Percent A 0.5 % (0-0.5); Lymphocytes Absolute Auto 1.88 K/mm3 (0.9-3.2); Lymphocytes Percent Auto 31.3 % (18.3-44.2); Mean Corpuscular HGB Conc 30.2 g/dl (32-36); Mean Corpuscular Volume 99.5 fl (80-100); Mean Platelet Volume 9.5 fl (7.4-10.4); Monocytes Absolute Auto 0.8 K/mm3 (0.1-0.6); Monocytes Percent Auto 12.8 % (2.6-8.5); Neutrophils Absolute Auto 3.2 K/mm3 (1.3-6.7); Neutrophils Percent Auto 53.9 % (45.5-73.1); Nucleated Red Blood Cells Perc 0.3 % (0.0-0.2); Platelet Count Result 292 k/mm3 (150-375); Red Cell Distribution Width 17.2 % (11.5-14.5)
[2020-11-28 01:49] LABS: Alanine Aminotransferase 10 U/L (4-35); Albumin Level 2.4 g/dL (3.5-5.1); Alkaline Phosphatase 52 U/L (38-126); Anion Gap 3 mmol/L (8-16); Aspartate Amino Transferase 18 U/L (14-36); Bilirubin,Total 0.7 mg/dL (0.2-1.3); Blood Urea Nitrogen 18 mg/dL (7-17); Calcium 7.7 mg/dL (8.4-10.2); Carbon Dioxide 26 mmol/L (22-30); Chloride 109 mmol/L (98-107); Estimated CRCL calculation 82 ml/min; Estimated Glomerular Filt Rate 58; Glucose 100 mg/dL (65-105); Magnesium 2.2 mg/dL (1.6-2.3); Phosphorus 3.8 mg/dL (2.5-4.5); Potassium 3.9 mmol/L (3.4-5.0); Sodium 138 mmol/L (137-145)
[2020-11-28 02:04] LABS: Hematocrit 19.9 % (37.0-47.0)
[2020-11-28] MEDS: SODIUM CHLORIDE 0.9% IV 250 ML 30 ML IV CONT ×2 (03:45→17:41)
[2020-11-28 08:37] LABS: Hematocrit 22.5 % (37.0-47.0); Hemoglobin 7.2 g/dL (12.0-15.0)
[2020-11-28] MEDS: ATORVASTATIN 40 MG TABLET PO (09:15)
[2020-11-28] MEDS: FUROSEMIDE 40 MG TABLET PO (09:15)
[2020-11-28] MEDS: THERAPEUTIC MULTIVITAMINS/MINERALS TAB (*BKC) 1 TABLET PO (09:15)
[2020-11-28] MEDS: CHOLECALCIFEROL 1,000 UNITS TABLET 2000 UNITS PO (09:15)
--- NOTE | 2020-11-28 09:39 | PCOTNOTE ---
Attempted to see patient this AM. RN recommends to hold the evaluation until later due to bleeding. Will continue to attempt.
[2020-11-28 11:12] LABS: Hematocrit 24.3 % (37.0-47.0); Hemoglobin 7.8 g/dL (12.0-15.0)
--- NOTE | 2020-11-28 11:31 | PC.NURSE ---
1115- report given to Ruthie STEWARD-pt medical status- pt moved to 257 via bed accompanied staff-no c/o pain at this time- personal belongings with pt
--- NOTE | 2020-11-28 11:40 | PC.NURSE ---
This patient, Phoebe Blackburn, [facility] at 1130. Report received from Erica STEWARD. Patient/family oriented to unit policies and routines
--- NOTE | 2020-11-28 13:42 | PM.IMHP ---
H&P: HPI History of Present Illness Date/Time: 11/28/20 13:42 Chief Complaint: vaginal bleeding Narrative: Phoebe Blackburn is a 55 year old female who is presenting with postmenopausal bleeding. She was recently the hospital for the same complaint in October 2020. During that admission she was noted to have a hemoglobin of 5.3, she received 3 units of blood and her hemoglobin was stable at 8 on discharge. Ultrasound of the pelvis was done during her visit, which was a technically difficult exam due to her body habitus endometrial stripe was not adequately visualized. A dermoid cyst was identified on a CT scan. Eliquis was held during a visit and upon discharge. She states that Eliquis was restarted about 12 days after discharge, no vaginal bleeding at that point was minimal and spotting. However about 5 days ago she started to have increase in her vaginal bleeding and also passing clots, 2 days ago she felt dizzy and was hearing ocean waves . So she felt that there was something wrong so she presented to the ED. Her hemoglobin was noted to be 4.0. She has an appointment coming up with her lead person, Dr. Agudelo on Dec 03. Review of Systems Constitutional: Constitutional: Reports no additional constitutional complaints Eyes: Eyes: Reports no additional eye complaints ENT: Reports system reviewed and no additional complaints, except as documented Cardiovascular: Cardiovascular: Reports no additional cardiovascular complaints Respiratory: Respiratory: Reports no additional respiratory complaints Gastrointestinal: Gastrointestinal: Reports no additional gastrointestinal complaints Genitourinary: Genitourinary: Reports no additional female genitourinary complaints Musculoskeletal: Musculoskeletal: Reports no additional musculoskeletal complaints Integumentary/Breasts: Skin/Breast: Reports system reviewed and no additional complaints, except as docu Neurologic: Reports system reviewed and no additional complaints, except as documented Psychiatric: Psychiatric: Reports no additional psychiatric complaints Endocrine: Endocrine: Reports no additional endocrine complaints Hematologic/Lymphatic: Hematologic/Lymphatic: Reports no additional hematologic/lymphatic complaints Allergic/Immunologic: Allergic/Immunologic: Reports no additional allergic/immunologic complaints PMFSH Past Medical History Medical History Anemia Hx of renal calculi Hyperlipidemia, unspecified Hypertension Lymphedema, not elsewhere classified Ovarian mass Personal history of pulmonary embolism Surgical History Surgical History H/O prior ablation treatment uterine History of oophorectomy, unilateral S/P patent foramen ovale closure Family History Family History Mother Carcinoma of colon Father , Age 85, Lewy body dementia Lewy body dementia Other Unknown family medical history Social History Social History Social History: Never and lives with her mother Smoking status: Never smoker Alcohol intake: never Substance use: never Substance use type: does not use Gender identity (if verbalized by the patient): Female Spiritual care concerns: No Meds Home Medications and Allergies Home Medications Medication Instructions Recorded Confirmed Type apixaban 5 mg tablet 5 mg PO BID 12/20/19 11/27/20 History carvedilol phosphate 80 mg 80 mg PO DAILY 12/20/19 11/27/20 History capsule,[id number] multiphase cholecalciferol (vitamin D3) 50 2,000 unit PO DAILY 12/20/19 11/27/20 History mcg (2,000 unit) capsule furosemide 40 mg tablet 40 mg PO QAM 12/20/19 11/27/20 History phentermine 37.5 mg tablet 37.5 mg PO DAILY 12/20/19 11/27/20 History topiramate 100 mg tablet 200 mg PO HS 12/20/19
--- NOTE | 2020-11-28 14:59 | PM.IMPN ---
Progress Note: A&P Assessment and Plan (1) Vaginal bleeding: Code(s): N93.9 - Abnormal uterine and vaginal bleeding, unspecified Status: Acute Assessment and Plan: Patient has been seeing in the outpatient setting and has already her care with Associate Merchandiser and appointment for further evaluation. Our Associate Merchandiser discussed the need for endometrial Bx. Patient is agreeable to hysterectomy. (2) Anemia: Qualifiers: Anemia type: other cause Other causes of anemia: other cause, not classified Qualified Code(s): D64.89 - Other specified anemias Code(s): D64.9 - Anemia, unspecified Status: Acute Assessment and Plan: Transfuse as needed. Likely secondary to abnormal vaginal bleed. (3) Ovarian mass: Code(s): N83.8 - Other noninflammatory disorders of ovary, fallopian tube and broad ligament Status: Acute Assessment and Plan: Follow up in the outpatient setting. (4) Hypertension: Qualifiers: Hypertension type: unspecified Qualified Code(s): I10 - Essential (primary) hypertension Code(s): I10 - Essential (primary) hypertension Status: Acute Assessment and Plan: Continue to monitor (5) Personal history of pulmonary embolism: Code(s): Z86.711 - Personal history of pulmonary embolism Status: Acute Assessment and Plan: Currently holding anticoagulation due to vaginal bleed. (6) Postmenopausal bleeding: Code(s): N95.0 - Postmenopausal bleeding Status: Acute Assessment and Plan: Follow up in the outpatient setting. (7) CKD (chronic kidney disease), stage III: Code(s): N18.3 - Chronic kidney disease, stage 3 (moderate) Status: Acute Assessment and Plan: Continue to monitor (8) Chronic obstructive pulmonary disease, unspecified: Code(s): J44.9 - Chronic obstructive pulmonary disease, unspecified Status: Acute Assessment and Plan: Stable Subjective Date/time seen: 11/28/20 14:59 I feel fine. Review of Systems Review of Systems: Narrative: Patient having vaginal bleeding. Constitutional: Comments: no weight loss, no chills. Cardiovascular: Comments: palpitations. Respiratory: Comments: sob at exertion. Gastrointestinal: Comments: no n/v/abdominal pain. Genitourinary: Comments: vaginal bleed. Musculoskeletal: Comments: no joint pain Integumentary/Breasts: Comments: no rashes. Neurologic: Comments: no sensory motor deficit. Exam Narrative: Exam Narrative: Lying in bed. Const: General: other (Chronically ill looking, generalized pallor, morbid obesity.) Nutritional Appearance: overweight Orientation/consciousness: patient oriented x3 Limitations: no limitations HENMT: Head: normal to inspection and normocephalic Ears: hearing grossly normal bilaterally General nose exam: Normal external nose present Face and sinus: normal facial exam Eyes: Pupils: Equal, round and reactive pupils present EOM: EOMs intact bilaterally Neck: Neck: no lymphadenopathy, supple and no JVD Resp: Effort & Inspection: normal respiratory effort and able to speak in complete sentences Auscultation: clear to auscultation bilaterally Cardio: Jugular venous distension: no JVD Rate: regular rate Rhythm: regular rhythm GI: Inspection: Pannus present GI Palp: Yes Soft to palpation and Yes No hepatosplenomegaly present : General: Yes deferred and Yes other Skin: General skin exam: pallor Neuro: General: patient oriented x3 and CN's II-XI intact bilaterally Cranial nerves: Yes CN's II-XII intact bilaterally and Yes Equal, round and reactive pupils present Cognition (Neuro): normal cognition Speech: normal speech Gait exam (Neuro): Assistive device used (uses cane and roller.) Motor exam (neuro): 5/5 motor strength present throughout Extrem: General: no joint enlargement Objective Data Vital Signs Vital Signs: Vital Signs - 24 hr 11/27/20 16:31 11/27/20 17
[2020-11-28 17:37] LABS: Hematocrit 20.5 % (37.0-47.0); Hemoglobin 6.6 g/dL (12.0-15.0)
[2020-11-28 22:43] LABS: Hematocrit 23.3 % (37.0-47.0); Hemoglobin 7.5 g/dL (12.0-15.0)
[2020-11-29 02:00] VITALS: BP 115/64; PULSE 74; RESP 18; TEMP 36.4; O2SAT 98
[2020-11-29 05:36] LABS: Hematocrit 23.8 % (37.0-47.0); Hemoglobin 7.7 g/dL (12.0-15.0)
[2020-11-29 05:45] VITALS: BP 106/60; PULSE 74; RESP 16; TEMP 36.8; O2SAT 100
[2020-11-29 08:00] VITALS: BP 137/73; PULSE 75; RESP 18; TEMP 36.4; O2SAT 98
[2020-11-29] MEDS: FUROSEMIDE 40 MG TABLET PO (08:09)
[2020-11-29] MEDS: THERAPEUTIC MULTIVITAMINS/MINERALS TAB (*BKC) 1 TABLET PO (08:09)
[2020-11-29] MEDS: ATORVASTATIN 40 MG TABLET PO (08:09)
[2020-11-29] MEDS: CHOLECALCIFEROL 1,000 UNITS TABLET 2000 UNITS PO (08:09)
[2020-11-29] MEDS: GABAPENTIN 100 MG CAPSULE PO (08:09)
--- NOTE | 2020-11-29 09:31 | PM.GYNPNOP ---
CERTIFIED ENERGY MANAGER - A/P Assessment and plan (1) Vaginal bleeding: Code(s): N93.9 - Abnormal uterine and vaginal bleeding, unspecified Status: Acute Assessment and Plan: Improved. Hb stable after 3 units of pRBCs. Elliquis currently being held. She has an appointment with her web application developer, Dr. Agudelo on December 03 to discuss further management. (2) Anemia: Qualifiers: Anemia type: other cause Other causes of anemia: other cause, not classified Qualified Code(s): D64.89 - Other specified anemias Code(s): D64.9 - Anemia, unspecified Status: Acute (3) Personal history of pulmonary embolism: Code(s): Z86.711 - Personal history of pulmonary embolism Status: Acute (4) Lymphedema, not elsewhere classified: Code(s): I89.0 - Lymphedema, not elsewhere classified Status: Acute (5) Hyperlipidemia, unspecified: Qualifiers: Hyperlipidemia type: unspecified Qualified Code(s): E78.5 - Hyperlipidemia, unspecified Code(s): E78.5 - Hyperlipidemia, unspecified Status: Acute (6) Postmenopausal bleeding: Code(s): N95.0 - Postmenopausal bleeding Status: Acute (7) Hypertension: Qualifiers: Hypertension type: unspecified Qualified Code(s): I10 - Essential (primary) hypertension Code(s): I10 - Essential (primary) hypertension Status: Acute (8) Ovarian mass: Code(s): N83.8 - Other noninflammatory disorders of ovary, fallopian tube and broad ligament Status: Acute Assessment and Plan: Left dermoid cyst on CT scan from Oct 2020 Time Spent With Patient Time: Total time spent is greater than 50% in coordination of care (as documented) at patient's floor/unit and/or counseling patient: Time with patient: 15 - 25 minutes CERTIFIED ENERGY MANAGER- PN:Subj Post-Op Subjective Date/time seen: 11/29/20 09:31 Patient states she is feeling fine, was up and ambulating yesterday without nausea, lightheadedness, or dizziness. Vaginal bleeding is improved, passed 1 clot overnight. Denies chest pain or shortness of breath. Exam Const: General: cooperative, comfortable, no acute distress and tired appearing Nutritional Appearance: obese Orientation/consciousness: oriented to person, oriented to place and oriented to time Limitations: physical limitations HENMT: Head: normocephalic and atraumatic Eyes: General: appearance normal, both eyes and all related structures Resp: Effort & Inspection: normal respiratory effort, able to speak in complete sentences, normal respiratory pattern, no audible wheezes, no cough, respiratory effort not decreased, not labored and no respiratory distress Auscultation: clear to auscultation bilaterally and no wheezes Cardio: Rate: regular rate Rhythm: regular rhythm Heart sounds: S1 normal heart sound present and S2 normal heart sound present Neuro: General: oriented to person, oriented to place and oriented to time Extrem: Other: Lymphedema bilateral lower extremities Psych: Speech and movement: Normal speech and movement present Affect: normal affect Attitude: cooperative Thought process: Normal thought process present Insight: Good insight present (Psych) Judgement: Good judgement present (Psych) CERTIFIED ENERGY MANAGER - PN: Obj Data Vital Signs Vital Signs: Vital Signs - 24 hr 11/28/20 10:00 11/28/20 14:00 11/28/20 18:15 Temperature 36.8 C 36.3 C L Pulse Rate 82 85 82 Respiratory Rate 18 16 Blood Pressure 121/58 L 112/49 L Pulse Oximetry 98 98 11/28/20 18:30 11/28/20 19:30 11/28/20 20:30 Temperature 36.8 C 36.2 C L 36.4 C Pulse Rate 84 85 80 Respiratory Rate 16 18 16 Blood Pressure 114/58 L 103/65 107/56 L Pulse Oximetry 97 99 98 11/28/20 21:06 11/28/20 21:59 11/29/20 02:00 Temperature 36.1 C L 36.4 C 36.4 C Pulse Rate 84 81 74 Respiratory Rate 18 16 18 Blood Pressure 114/51 L 113/54 L 115/64 Pulse Oximetry 99 98 98 11/29/20 05:45 Temperature 36.8 C Pulse Rate 74 Respiratory Ra
--- NOTE | 2020-11-29 09:35 | PM.DS ---
DS: Admitting Diagnosis Admitting Diagnosis Admitting Diagnosis: Vaginal bleeding DS: Discharge Diagnosis Discharge Diagnosis (1) Vaginal bleeding: Code(s): N93.9 - Abnormal uterine and vaginal bleeding, unspecified Status: Acute Assessment and Plan: Vaginal bleeding improved with holding Elliquis and provera. Has Transportation Agent follow up on Dec [address] Agudelo. Hold Elliquis for now, advised patient to call PCP today to schedule follow up to discuss further management of anticoagulation. (2) Anemia: Qualifiers: Anemia type: other cause Other causes of anemia: other cause, not classified Qualified Code(s): D64.89 - Other specified anemias Code(s): D64.9 - Anemia, unspecified Status: Acute (3) Ovarian mass: Code(s): N83.8 - Other noninflammatory disorders of ovary, fallopian tube and broad ligament Status: Acute (4) Hypertension: Qualifiers: Hypertension type: unspecified Qualified Code(s): I10 - Essential (primary) hypertension Code(s): I10 - Essential (primary) hypertension Status: Acute (5) Personal history of pulmonary embolism: Code(s): Z86.711 - Personal history of pulmonary embolism Status: Acute (6) Lymphedema, not elsewhere classified: Code(s): I89.0 - Lymphedema, not elsewhere classified Status: Acute (7) Hyperlipidemia, unspecified: Qualifiers: Hyperlipidemia type: unspecified Qualified Code(s): E78.5 - Hyperlipidemia, unspecified Code(s): E78.5 - Hyperlipidemia, unspecified Status: Acute (8) Postmenopausal bleeding: Code(s): N95.0 - Postmenopausal bleeding Status: Acute (9) Unspecified osteoarthritis, unspecified site: Qualifiers: Osteoarthritis location: unspecified site Osteoarthritis type: unspecified Qualified Code(s): M19.90 - Unspecified osteoarthritis, unspecified site Code(s): M19.90 - Unspecified osteoarthritis, unspecified site Status: Acute (10) Chronic obstructive pulmonary disease, unspecified: Qualifiers: COPD type: unspecified COPD Qualified Code(s): J44.9 - Chronic obstructive pulmonary disease, unspecified Code(s): J44.9 - Chronic obstructive pulmonary disease, unspecified Status: Acute DS: Summary Hospital Course Hospital Course: Patient initially presented to the ED with vaginal bleeding and Hb of 4.0. Throughout her hospital stay, she was started on provera and she was transfused 3 units of pRBC. Hb stabilized at 7.5 to 7.7. Vaginal bleeding improved. Elliquis has been held during this admission. She was admitted for the similar issues at the end of October 2020. She states that she has had an endometrial ablation in the past and while that initially helped to control her bleeding, the effects have tapered off throughout the years. CT scan from October 2020 shows probably dermoid cyst, which is stable from 2017. Review of her records show that she presented in 2017 with similar issues. She was transferred to [place] during that visit and per noted from there, an endometrial biopsy was performed. She states that she has a karate black belt, Dr. Agudelo, who she has scheduled an appointment with for WednesdayDec 03. Status at Discharge Functional status at discharge: uses cane/walker Overall status at discharge: patient is progressing back to baseline Time Spent with Patient Time attestation: Total time spent providing and/or coordinating discharge services: Time spent: Less than 30 minutes Exam Const: General: cooperative, comfortable, no acute distress and tired appearing Nutritional Appearance: obese Orientation/consciousness: oriented to person, oriented to place and oriented to time Limitations: physical limitations HENMT: Head: normocephalic and atraumatic Eyes: General: appearance normal, both eyes and all related structures Resp: Effort & Inspection: normal respiratory effort, able to
--- NOTE | 2020-11-29 11:50 | PM.IMPN ---
Progress Note: A&P Assessment and Plan (1) Vaginal bleeding: Code(s): N93.9 - Abnormal uterine and vaginal bleeding, unspecified Status: Acute Assessment and Plan: Assessment and Plan (1) Vaginal bleeding: Assessment and Plan: Patient has been seeing in the outpatient setting and has already her care with Charging Board Operator and appointment for further evaluation. Our Charging Board Operator discussed the need for endometrial Bx. Patient is agreeable to hysterectomy. (2) Anemia: Assessment and Plan: Transfuse as needed. Likely secondary to abnormal vaginal bleed. (3) Ovarian mass: Assessment and Plan: Follow up in the outpatient setting. (4) Hypertension: Assessment and Plan: Continue to monitor (5) Personal history of pulmonary embolism: Assessment and Plan: Currently holding anticoagulation due to vaginal bleed. (6) Postmenopausal bleeding: Assessment and Plan: Follow up in the outpatient setting. (7) CKD (chronic kidney disease), stage III: Assessment and Plan: Continue to monitor (8) Chronic obstructive pulmonary disease, unspecified: Assessment and Plan: Stable (2) Low hemoglobin and low hematocrit: Code(s): D64.9 - Anemia, unspecified Status: Acute (3) Anemia: Qualifiers: Anemia type: other cause Other causes of anemia: other cause, not classified Qualified Code(s): D64.89 - Other specified anemias Code(s): D64.9 - Anemia, unspecified Status: Acute (4) Ovarian mass: Code(s): N83.8 - Other noninflammatory disorders of ovary, fallopian tube and broad ligament Status: Acute (5) Lymphedema, not elsewhere classified: Code(s): I89.0 - Lymphedema, not elsewhere classified Status: Acute (6) Postmenopausal bleeding: Code(s): N95.0 - Postmenopausal bleeding Status: Acute (7) Abnormal vaginal bleeding: Code(s): N93.9 - Abnormal uterine and vaginal bleeding, unspecified Status: Acute (8) CKD (chronic kidney disease), stage III: Code(s): N18.3 - Chronic kidney disease, stage 3 (moderate) Status: Acute (9) Chronic obstructive pulmonary disease, unspecified: Qualifiers: COPD type: unspecified COPD Qualified Code(s): J44.9 - Chronic obstructive pulmonary disease, unspecified Code(s): J44.9 - Chronic obstructive pulmonary disease, unspecified Status: Acute (10) Carpal tunnel syndrome on both sides: Code(s): G56.03 - Carpal tunnel syndrome, bilateral upper limbs Status: Acute (11) Iron deficiency anemia: Code(s): D50.9 - Iron deficiency anemia, unspecified Status: Acute (12) Unspecified osteoarthritis, unspecified site: Qualifiers: Osteoarthritis location: unspecified site Osteoarthritis type: unspecified Qualified Code(s): M19.90 - Unspecified osteoarthritis, unspecified site Code(s): M19.90 - Unspecified osteoarthritis, unspecified site Status: Acute Subjective Date/time seen: 11/29/20 11:50 Patient states that she feels very well. Review of Systems Review of Systems: Narrative: No new issues. All systems reviewed & are unremarkable except as noted in HPI and below (HPI) Exam Narrative: Exam Narrative: Lying in bed Const: General: cooperative, comfortable, alert and awake Nutritional Appearance: obese Orientation/consciousness: patient oriented x3 HENMT: Head: normal to inspection and atraumatic Face and sinus: normal facial exam Eyes: General: appearance normal, both eyes and all related structures Pupils: Equal, round and reactive pupils present EOM: EOMs intact bilaterally Neck: Neck: full ROM, supple and no JVD Resp: Effort & Inspection: able to speak in complete sentences Auscultation: clear to auscultation bilaterally Cardio: Jugular venous distension: no JVD Rate: regular rate Rhythm: regular rhythm GI: Inspection: Pannus present and obesity GI Palp: Yes Soft to palpation and Ye
== END 2020-11-29 12:08 | disposition home or self-care (01) | DRG 812 ==
LOC: ANHED 14:38 → ANHIMU 19:21 → ANH2MED 11-28 15:41 → ANHIMU 12-04 16:33
PROVIDERS: Family Medicine; Nurse Practitioner; Admitting Provider Obstetrics & Gynecology; Emergency Provider Emergency Medicine; PCP Internal Medicine; Visit Provider Obstetrics & Gynecology
DX: D64.89 Other specified anemias (principal); N93.9 Abnormal uterine and vaginal bleeding, unspecified; N83.8 Other noninflammatory disorders of ovary, fallopian tube and broad ligament; N95.0 Postmenopausal bleeding; I12.9 Hypertensive chronic kidney disease with stage 1 through stage 4 chronic kidney disease, or unspecified chronic kidney disease; N18.30 Chronic kidney disease, stage 3 unspecified; I89.0 Lymphedema, not elsewhere classified; J44.9 Chronic obstructive pulmonary disease, unspecified; E78.5 Hyperlipidemia, unspecified; M19.90 Unspecified osteoarthritis, unspecified site; Z79.01 Long term (current) use of anticoagulants; Z79.899 Other long term (current) drug therapy; Z86.711 Personal history of pulmonary embolism; Z87.442 Personal history of urinary calculi
CPT/HCPCS: 36415; 36430; 80053; 83735; 84100; 84443; 85014; 85018; 85025; 86850; 86900; 86901; 86923; 93005; 96360; 96361; 96374; 97161; 97165; 99285; A9270; G0378; J2405; J7030; J7050; P9016

== ENCOUNTER 2021-05-20 16:41 | Outpatient (CLI) | payer OTHER, SELFPAY ==
[2021-05-20 17:18] LABS: Basophils Absolute Auto 0.1 K/mm3 (0.0-0.1); Basophils Percent Auto 0.9 % (0.2-1.2); Eosinophils Absolute Auto 0.3 K/mm3 (0-0.3); Eosinophils Percent Auto 4.3 % (0-4.4); Hematocrit 48.7 % (37.0-47.0); Hemoglobin 15.8 g/dL (12.0-15.0); Immature Granulocyte Absolute 0.01 K/mm3 (0.00-0.031); Immature Granulocyte Percent A 0.2 % (0-0.5); Lymphocytes Absolute Auto 1.22 K/mm3 (0.9-3.2); Lymphocytes Percent Auto 18.5 % (18.3-44.2); Mean Corpuscular HGB Conc 32.4 g/dl (32-36); Mean Corpuscular Volume 92.6 fl (80-100); Mean Platelet Volume 9.9 fl (7.4-10.4); Monocytes Absolute Auto 0.7 K/mm3 (0.1-0.6); Monocytes Percent Auto 10.3 % (2.6-8.5); Neutrophils Absolute Auto 4.3 K/mm3 (1.3-6.7); Neutrophils Percent Auto 65.8 % (45.5-73.1); Platelet Count Result 340 k/mm3 (150-375); Red Blood Count 5.26 M/mm3 (4.2-5.4); White Blood Count 6.6 K/mm3 (4.5-10.0)
[2021-05-20 17:28] LABS: Alanine Aminotransferase 22 U/L (4-35); Albumin Level 4.7 g/dL (3.5-5.1); Alkaline Phosphatase 124 U/L (38-126); Anion Gap 11 mmol/L (8-16); Aspartate Amino Transferase 32 U/L (14-36); Bilirubin,Total 0.8 mg/dL (0.2-1.3); Blood Urea Nitrogen 21 mg/dL (7-17); Calcium 9.9 mg/dL (8.4-10.2); Carbon Dioxide 24 mmol/L (22-30); Chloride 109 mmol/L (98-107); Cholesterol 179 mg/dL (0-200); Estimated Glomerular Filt Rate 51; Glucose 132 mg/dL (65-105); HDL Direct 57 mg/dL; Potassium 4.3 mmol/L (3.4-5.0); Sodium 144 mmol/L (137-145); Triglycerides 142 mg/dL (<150)
[2021-05-20 17:38] LABS: LDL Cholesterol Direct 77 mg/dL
[2021-05-20 18:18] LABS: Iron 180 ug/dL (37-170)
[2021-05-20 18:28] LABS: Percent Iron Saturation 58 % (20-50)
[2021-05-20 18:33] LABS: Vitamin D 25 Hydroxy 50.8 ng/mL
== END 2021-05-20 16:42 | disposition home or self-care (01) ==
LOC: ANHLAB 16:43
PROVIDERS: PCP Internal Medicine; Visit Provider Internal Medicine
DX: E78.5 Hyperlipidemia, unspecified (principal); D64.89 Other specified anemias; E55.9 Vitamin D deficiency, unspecified; I12.9 Hypertensive chronic kidney disease with stage 1 through stage 4 chronic kidney disease, or unspecified chronic kidney disease; N18.30 Chronic kidney disease, stage 3 unspecified
CPT/HCPCS: 36415; 80053; 80061; 82306; 83540; 83550; 85025

== ENCOUNTER → 2022-01-10 10:27 | Outpatient (CLI) | payer OTHER, SELFPAY ==
--- NOTE | ~2022-01-10 | MM_ITS ---
EXAMINATION: MM screening bebe BI w arlet HISTORY: Screening mammogram TECHNIQUE: Craniocaudal and mediolateral oblique 3-D tomosynthesis images were obtained and synthetic 2-D images were generated. CAD analysis was submitted and interpreted. COMPARISON: 08/26/2010 diagnostic left mammogram and left breast ultrasound examination 09/20/2009 bilateral screening mammogram BREAST PARENCHYMAL COMPOSITION: The breasts are almost entirely fatty. FINDINGS: There is no evidence of suspicious mass, calcification, or architectural distortion to sugg est malignancy in either breast. There has been no suspicious interval change. IMPRESSION: 1. No mammographic evidence of malignancy. 2. Recommend routine screening mammography in one year. BI-RADS Category 1: Negative Reviewed, dictated and finalized at location A. RDOUS SUBSTANCES SCIENTIST
== END ==
PROVIDERS: Visit Provider Nurse Practitioner
DX: Z12.31 Encounter for screening mammogram for malignant neoplasm of breast (principal)
CPT/HCPCS: 77063; 77067

== ENCOUNTER → 2022-03-04 09:17 | Outpatient (CLI) | payer OTHER, SELFPAY ==
--- NOTE | ~2022-03-04 | CT_ITS ---
EXAMINATION: CT abdomen pelvis wo con EXAM DATE: 03/04/2022 09:54 INDICATION: Chronic kidney disease, stage 2. TECHNIQUE: Spiral CT of the abdomen and pelvis was performed without contrast. Axial, coronal and sag ittal images were reviewed. The dose-length product (DLP) for this examination was 1158.55 mGy-cm. The exposure was tailored according to patient size (auto mA exposure control), and iterative reconst ruction (ASIR) was used as additional dose reduction technique. Comparison is made to prior examinati on from 11/08/2020. FINDINGS: There are bilateral kidney stones, larger stone burden on the right with multiple stones me asuring up to about 7 mm. There is moderate right renal atrophy and mild left renal atrophy. No urete ral stones or hydronephrosis. There is been interval hysterectomy, oophorectomy. The bladder is col lapsed at time of imaging limiting evaluation. The liver, spleen, adrenal glands and pancreas are un remarkable. There are gallstones within an otherwise unremarkable gallbladder. No evidence of obstr uctive biliary disease. There is no retroperitoneal or pelvic lymphadenopathy. The appendix is normal. There is mild sigmoid colonic diverticulosis. There is no adjacent inflammat ory change to suggest diverticulitis. There is small sliding gastroesophageal hiatal hernia. There i s expected amount of colonic stool. No free intraperitoneal gas. The heart is normal in size. Th ere are no pericardial or pleural effusions. The lung bases are unremarkable. There are no osteobla stic or osteolytic lesions identified. IMPRESSION: 1. Bilateral nonobstructing nephrolithiasis, larger stone burden on the right. 2. Moderate right, mild left renal atrophy. 3. Cholelithiasis. 4. Small hiatal hernia. 5. Mild colonic diverticulosis. Reviewed, dictated and finalized at location B.
== END ==
PROVIDERS: Visit Provider Internal Medicine Nephrology
DX: N18.2 Chronic kidney disease, stage 2 (mild) (principal); N20.0 Calculus of kidney; K80.20 Calculus of gallbladder without cholecystitis without obstruction; K44.9 Diaphragmatic hernia without obstruction or gangrene; K57.30 Diverticulosis of large intestine without perforation or abscess without bleeding
CPT/HCPCS: 74176

== ENCOUNTER → 2022-09-26 10:36 | Outpatient (CLI) | payer OTHER, SELFPAY ==
--- NOTE | ~2022-09-26 | XR_ITS ---
EXAMINATION: XR abdomen/kub 1V INDICATION: Bilateral kidney stones TECHNIQUE: Supine views of the abdomen were obtained on 2 radiographs. COMPARISON: CT, 03/04/2022 FINDINGS: Multiple nonobstructing stones are seen in the right kidney which measure up to 5 mm in the lower pole. Bowel contents obscure visualization of the known left kidney stones. There is a paucity of gas in the small bowel. An expected volume of gas and stool are seen in the colon. IMPRESSION: 1. Right nephrolithiasis without definite change. Left kidney obscured by bowel contents. Reviewed, dictated and finalized at location B. ITURE MOVER
== END ==
PROVIDERS: PCP Internal Medicine; Visit Provider Urology
DX: N20.0 Calculus of kidney (principal)
CPT/HCPCS: 74018

== ENCOUNTER 2022-10-29 14:46 | Outpatient (CLI) | payer OTHER, SELFPAY ==
[2022-10-29 16:12] LABS: Anion Gap 8 mmol/L (8-16); Blood Urea Nitrogen 34 mg/dL (7-17); Calcium 9.3 mg/dL (8.4-10.2); Carbon Dioxide 21 mmol/L (22-30); Chloride 108 mmol/L (98-107); Estimated Glomerular Filt Rate 39; Glucose 107 mg/dL (65-110); Potassium 4.6 mmol/L (3.4-5.0); Sodium 137 mmol/L (137-145)
[2022-10-29 16:15] LABS: INR 2.6; Prothrombin Time 26.7 Seconds (11.1-14.7)
== END 2022-10-29 14:47 | disposition home or self-care (01) ==
LOC: ANHSURGERY 14:48
PROVIDERS: Anesthesiology; PCP Internal Medicine; Visit Provider Urology
DX: N20.0 Calculus of kidney (principal); E11.9 Type 2 diabetes mellitus without complications; Z79.899 Other long term (current) drug therapy
CPT/HCPCS: 36415; 80048; 85610; 85730; 87077; 87086; 87186

== ENCOUNTER 2022-11-06 02:17 | Day surgery (SDC) | payer OTHER, SELFPAY ==
[2022-10-23 10:05] VITALS: BMI 66.0
--- NOTE | 2022-10-23 10:33 | PC.NURSE ---
Report to the Outpatient Waiting Room, entrance under the green pavilion located off [facility], at time 6:30 on date 11/06/22. Planned Procedure Time: 8:30. Time changes happen often and if your time is changed the preop area will call you the afternoon before. - You and your visitor will be asked to self-screen and do not enter if you have any COVID symptoms. - Only one visitor is requested with a max of two and NO children visitors are allowed at this time. - The patient visitor may be requested to leave or wait in car when not with patient due to distancing restrictions. - A mask is optional within the hospital. Patients may have clear liquids (water, carbonated beverages, clear teas, apple juice) until 3 hours prior to surgery (5:30) with a maximum of 20 ounces. - No food from midnight until time of surgery Take the following medications with a SIP of water the morning of surgery: CARVEDILOL, TYLENOL/TRAMADOL IF NEEDED Medications to discontinue per physician: VITAMINS Date to take last dose: 11/02/22 STOP XARELTO 7 DAYS PRIOR TO PROCEDURE (PT STATES PER OFFICE PAPERWORK) Please no make-up, nail thai, hairspray, perfume, deodorant, or body powder the day of surgery. No jewelry (including any body piercings) or valuables the day of surgery, leave them at home. Please take a shower or bath the night before, or the morning of, surgery with an antibacterial soap. Wear comfortable, loose fitting clothing. - Jewelry must be removed prior to entering the operating room. Rings and piercings that are not removed may be cut off. - The hospital will not accept responsibility for valuables. - Please leave all valuables, including medications, at home the day of surgery. If you are going home after surgery, a licensed special client bus driver must drive you home. - NO public transportation without another adult if you receive anesthesia. - We recommend that an adult stay with you for 24 hours following discharge. - We also recommend that you do not drive, make important decision, drink alcoholic beverages, or take any drugs that were not prescribed by your health care provider for at least 24 hours after your discharge time. Follow any additional instructions given to you from your surgeon. If you or anyone in your household have experienced Covid symptoms in the past week, please notify your surgeon or the nurse liaison at the phone number below for possible testing. Telephone instructions given to GARCIA ZIEGLER and asked if any additional questions and then verbalized understanding. Patient advised to call surgeon office or pre surgery nurse liaison [phone] if any additional questions.
--- NOTE | 2022-11-01 08:07 | PM.HPGS ---
History of Present Illness History of Present Illness Consent: Risks, benefits, and alternatives have been discussed and questions answered. Patient agrees to proceed with procedure. Chief complaint: bilateral kidney stones Narrative: Phoebe Blackburn is a 57 year old female who, during course of evaluation for microscopic hematuria, was found to have a stone in her right kidney. This stone, on various imaging studies, as measured between 5 and 9 mm and is visible on a KUB. After discussion of therapeutic options she has elected for right ESWL. Patient is aware of the risk including, but not limited to, adverse cardiopulmonary events, need for additional procedures, postoperative hematuria and injury to the kidney with perinephric hematoma. Review of Systems Cardiovascular: Cardiovascular: Denies chest pain, Denies lightheadedness, Denies palpitations and Denies dyspnea Respiratory: Respiratory: Denies dyspnea Gastrointestinal: Gastrointestinal: Denies diarrhea, Denies nausea and Denies vomiting Genitourinary: Genitourinary: Denies hematuria and Denies dysuria Endocrine: Endocrine: Denies palpitations PMFSH Past Medical History Medical History COVID-19 Hx of renal calculi Hyperlipidemia, unspecified Hypertension Low hemoglobin and low hematocrit Lymphedema, not elsewhere classified Ovarian mass Personal history of pulmonary embolism Surgical History Surgical History H/O prior ablation treatment uterine History of oophorectomy, unilateral S/P patent foramen ovale closure S/P LEVI (total abdominal hysterectomy) Family History Family History Mother Carcinoma of colon Father , Age 85, Lewy body dementia Lewy body dementia Other Unknown family medical history Social History Social History Social History: Never and lives with her mother Smoking status: Never smoker Second hand tobacco smoke exposure: No Alcohol intake: never Substance use: never Substance use type: does not use Additional living arrangements comments: MOM AND BROTHER Gender identity (if verbalized by the patient): Female Spiritual care concerns: No Meds Home Medications and Allergies Home Medications Medication Instructions Recorded Confirmed Type carvedilol phosphate 80 mg 80 mg PO DAILY 12/20/19 10/23/22 History capsule,ext.[id number] multiphase (Coreg CR) cholecalciferol (vitamin D3) 50 2,000 unit PO DAILY 12/20/19 10/23/22 History mcg (2,000 unit) capsule topiramate 100 mg tablet 200 mg PO HS 12/20/19 10/23/22 History atorvastatin 40 mg tablet 40 mg PO DAILY 11/08/20 10/23/22 History lisinopril 40 mg tablet 40 mg PO DAILY 12/06/20 10/23/22 History acetaminophen 325 mg capsule 325 mg PO Q6H PRN Pain 10/30/21 10/23/22 History (Tylenol) chlorthalidone 25 mg tablet 25 mg PO DAILY 10/30/21 10/23/22 History gabapentin 100 mg tablet 300 mg PO QHS 10/30/21 10/23/22 History rivaroxaban 20 mg tablet (Xarelto) 20 mg PO DAILY 10/30/21 10/23/22 History vibegron 75 mg tablet (Gemtesa) 75 mg PO DAILY 04/03/22 10/23/22 History metformin 500 mg tablet 500 mg PO BID #180 tabs 05/22/22 10/23/22 Rx tramadol 50 mg tablet 50 mg PO Q8H PRN pain #90 tabs 06/16/22 10/23/22 Rx dapagliflozin 10 mg tablet 10 mg PO DAILY 10/23/22 10/23/22 History (Farxiga) ezetimibe 10 mg tablet 10 mg PO DAILY 10/23/22 10/23/22 History mecobalamin (vitamin B12) 1,000 1,000 mcg PO DAILY 10/23/22 10/23/22 History mcg chewable tablet (B12 Active) spironolactone 25 mg tablet 25 mg PO DAILY 10/23/22 10/23/22 History Allergies Allergy/AdvReac Type Severity Reaction Status Date / Time latex Allergy Intermediate Hives Verified 10/23/22 09:56 Exam Const: General: no acute distress Resp: Effort & Ins
--- NOTE | ~2022-11-06 | XR_ITS ---
EXAMINATION: XR abdomen/kub 1V DATE: 11/06/2022 06:49 INDICATION: Kidney stone. TECHNIQUE: A supine view of the abdomen on 2 radiographs was obtained. COMPARISON: CT abdomen and pelvis 03/04/2022, abdomen radiographs 09/26/2022 FINDINGS: There are no dilated loops of bowel. There are multiple stones in each kidney, right worse than left, measuring up to approximately 7 mm on the right. Stable calcifications in the pelvis may b e vascular. IMPRESSION: 1. Bilateral kidney stones. Reviewed, dictated and finalized at location A. AL LATHE OPERATOR IMPRESSION: 1. Bilateral kidney stones.
[2022-11-06] MEDS: LACTATED RINGERS 1,000 ML 30 ML IV CONT (07:10)
--- NOTE | 2022-11-06 07:15 | WPDHPUPDATE1 ---
History and Physical Update Update Date/Time: 11/06/22 07:15 History and Physical has been reviewed, including an updated exam of the patient. There are NO changes in the patient's condition. Risks, benefits, and alternatives have been discussed and questions answered. Patient agrees to proceed with procedure.
--- NOTE | 2022-11-06 07:57 | WPDANESEPPF ---
Anes - Initial Pre Proc Eval Procedure: Operation Date: 11/06/22 08:30 Proposed Procedures p Cystoscopy, Right Ureteroscopy, Possible Right Retrograde Pyelogram, Possible Right Stone Extraction, Possible Right Stent Placement, Possible Holmium Laser Procedure - Low Fajardo MD Date/Time: 11/06/22 07:57 Surgeon: Low Fajardo MD Pre Op Diagnosis: bilateral kidney stones Patient Data Age: 57 Gender: F Height: 1.54 m Weight: 156 kg Allergies Allergy/AdvReac Type Severity Reaction Status Date / Time latex Allergy Intermediate Hives Verified 11/06/22 06:54 Home Medications Medication Instructions Recorded Confirmed Type carvedilol phosphate 80 mg 80 mg PO DAILY 12/20/19 11/06/22 History capsule,ext.[id number] multiphase (Coreg CR) cholecalciferol (vitamin D3) 50 2,000 unit PO DAILY 12/20/19 11/06/22 History mcg (2,000 unit) capsule topiramate 100 mg tablet 200 mg PO HS 12/20/19 11/06/22 History atorvastatin 40 mg tablet 40 mg PO DAILY 11/08/20 11/06/22 History lisinopril 40 mg tablet 40 mg PO DAILY 12/06/20 11/06/22 History acetaminophen 325 mg capsule 325 mg PO Q6H PRN Pain 10/30/21 11/06/22 History (Tylenol) chlorthalidone 25 mg tablet 25 mg PO DAILY 10/30/21 11/06/22 History gabapentin 100 mg tablet 300 mg PO QHS 10/30/21 11/06/22 History rivaroxaban 20 mg tablet (Xarelto) 20 mg PO DAILY 10/30/21 11/06/22 History vibegron 75 mg tablet (Gemtesa) 75 mg PO DAILY 04/03/22 11/06/22 History metformin 500 mg tablet 500 mg PO BID #180 tabs 05/22/22 11/06/22 Rx tramadol 50 mg tablet 50 mg PO Q8H PRN pain #90 tabs 06/16/22 11/06/22 Rx dapagliflozin 10 mg tablet 10 mg PO DAILY 10/23/22 11/06/22 History (Farxiga) ezetimibe 10 mg tablet 10 mg PO DAILY 10/23/22 11/06/22 History mecobalamin (vitamin B12) 1,000 1,000 mcg PO DAILY 10/23/22 11/06/22 History mcg chewable tablet (B12 Active) spironolactone 25 mg tablet 25 mg PO DAILY 10/23/22 11/06/22 History Patient hx anesthesia problems: none Family hx anesthesia problems: none Results Review: All pre-operative results and documents have been reviewed as part of the pre-operative evaluation. [facility] Past Medical History Medical History COVID-19 Hx of renal calculi Hyperlipidemia, unspecified Hypertension Low hemoglobin and low hematocrit Lymphedema, not elsewhere classified Ovarian mass Personal history of pulmonary embolism Surgical History Surgical History H/O prior ablation treatment uterine History of oophorectomy, unilateral S/P patent foramen ovale closure S/P LEVI (total abdominal hysterectomy) Family History Family History Mother Carcinoma of colon Father , Age 85, Lewy body dementia Lewy body dementia Other Unknown family medical history Social History Social History Social History: Never and lives with her mother Smoking status: Never smoker Second hand tobacco smoke exposure: No Alcohol intake: never Substance use: never Substance use type: does not use Living arrangements: with family Additional living arrangements comments: MOM AND BROTHER Gender identity (if verbalized by the patient): Female Spiritual care concerns: No Anes - Eval Final PreProcedure Day of Procedure 11/06/22 07:57 Patient weight: super morbidly obese Heart: regular rate and rhythm Lungs: decreased breath sounds Airway: Mallampati scale class II Neurological: other (alert) Last oral intake: >/= 8 hours ASA classification: IV Emergent: no Anesthetic plan: proceed Anesthesia type and monitoring: general LMA and standard monitoring Results Review: All pre-operative results and documents have been reviewed as part of the pre-operative evaluation. Informed Consen
[2022-11-06] MEDS: ceFAZolin 3 GM/D5W 100 ML 100 ML IVPB (08:40)
[2022-11-06 09:06] VITALS: BP 98/68; PULSE 70; RESP 14; TEMP 36.5; O2SAT 100
[2022-11-06 09:20] VITALS: BP 107/68; PULSE 69; RESP 17; O2SAT 100
--- NOTE | 2022-11-06 09:21 | P.OP_ITS ---
Procedure Note - Detailed Date of Procedure 11/06/22 Pre-op Diagnosis Bilateral kidney stones Post-op Diagnosis Same Procedure Performed Attempted cystoscopy and right ureteroscopy Surgeon Low Fajardo MD Anesthesia General Description of Procedure Patient was initially scheduled for right ESWL on this morning. Because of her body habitus and difficulty visualizing the stone imaging we opted, instead, to attempt endoscopic manipulation of her nonobstructing right renal calculi. After the uneventful induction of a general LMA anesthetic we attempted positioning on the cystoscopy table in a manner to allow access to her urethra/bladder. Unfortunately, because of marked edema of her thighs bilateral ly, we were unable to position in such a fashion to allow access to either the urethra or bladder for simple cystoscopy. In light of that I opted to abort procedure. I will discuss with her options including simple observation with watchful waiting of the stones, referral to a bariatric center or consideration for percutaneous nephrolithotomy if the stones become problematic or grow significantly. Pathology None sent Complications No immediate complications Condition Stable
--- NOTE | 2022-11-06 09:25 | SUR.PHASEI ---
0925: Simple mask removed.
[2022-11-06 09:35] VITALS: BP 103/66; PULSE 68; RESP 12; O2SAT 96
[2022-11-06 09:40] VITALS: BP 105/73; PULSE 69; RESP 18
[2022-11-06 10:10] VITALS: BP 98/63; PULSE 75; RESP 16
== END 2022-11-06 10:30 | disposition home or self-care (01) ==
PROVIDERS: PCP Internal Medicine; Visit Provider Urology
PROC: (CPT 52352; principal; 2022-11-06 08:30)
DX: N20.0 Calculus of kidney (principal); E66.01 Morbid (severe) obesity due to excess calories; Z68.44 Body mass index [BMI] 60.0-69.9, adult; Z53.8 Procedure and treatment not carried out for other reasons; I10 Essential (primary) hypertension; E78.5 Hyperlipidemia, unspecified; Z86.711 Personal history of pulmonary embolism; Z79.84 Long term (current) use of oral hypoglycemic drugs
CPT/HCPCS: 52351; 74018; A9270; J0690; J2405; J2704; J3010; J7030; J7120

== ENCOUNTER 2024-04-27 15:06 | Outpatient (CLI) | payer OTHER, SELFPAY ==
--- NOTE | ~2024-04-27 | MM_ITS ---
EXAMINATION: MM screening bebe BI w arlet HISTORY: Screening mammogram TECHNIQUE: Craniocaudal and mediolateral oblique 3-D tomosynthesis images were obtained and synthetic 2-D images were generated. CAD analysis was submitted and interpreted. COMPARISON: 01/10/2022 BREAST PARENCHYMAL COMPOSITION:Not Dense. The breasts are almost entirely fatty FINDINGS: No suspicious mass, calcification, or architectural distortion are identified in either susana ast to suggest malignancy. There has been no suspicious interval change. IMPRESSION: No mammographic evidence of malignancy. Recommend routine screening mammography in one year. BI-RADS Category 1: Negative Reviewed, dictated and finalized at location .
== END 2024-04-27 15:07 ==
LOC: MICIMG 15:08
PROVIDERS: PCP Emergency Medicine; Visit Provider Family Medicine
DX: Z12.31 Encounter for screening mammogram for malignant neoplasm of breast (principal)
CPT/HCPCS: 77063; 77067

== ENCOUNTER 2024-05-16 03:02 | Day surgery (SDC) | payer OTHER, SELFPAY ==
[2024-05-05 12:16] VITALS: BMI 58.6
--- NOTE | 2024-05-05 13:47 | PC.NURSE ---
Spoke with _patient_ regarding medication _XARELTO_. Pt. verbalizes understanding that the last dose of _XARELTO_ is to be taken on _05/13/2024_ and the Endoscopist will instruct them when to restart after the procedure.
--- NOTE | 2024-05-16 08:44 | WPDANESEPPF ---
Anes - Initial Pre Proc Eval Procedure: Operation Date: 05/16/24 09:00 Proposed Procedures p Colonoscopy - Tobi Andujar MD Date/Time: 05/16/24 08:44 Surgeon: Tobi Andujar MD Pre Op Diagnosis: other fecal abnormalities Patient Data Age: 59 Gender: F Height: 1.54 m Weight: 138.5 kg Allergies Allergy/AdvReac Type Severity Reaction Status Date / Time latex Allergy Intermediate Hives Verified 05/05/24 12:17 Home Medications Medication Instructions Recorded Confirmed Type atorvastatin 40 mg tablet 40 mg PO DAILY 11/08/20 05/05/24 History acetaminophen 325 mg capsule 325 mg PO Q6H PRN Pain 10/30/21 05/05/24 History (Tylenol) dapagliflozin propanediol 10 mg 10 mg PO DAILY 10/23/22 05/05/24 History tablet (Farxiga) ezetimibe 10 mg tablet 10 mg PO DAILY 10/23/22 05/05/24 History mecobalamin (vitamin B12) 1,000 1,000 mcg PO DAILY 10/23/22 05/05/24 History mcg chewable tablet (B12 Active) chlorthalidone 25 mg tablet See Rx Instructions .Route 09/03/23 05/05/24 Rx .COMPLEX #90 tabs rivaroxaban 20 mg tablet (Xarelto) See Rx Instructions .Route 10/06/23 05/05/24 Rx .COMPLEX #90 tabs ferrous sulfate 325 mg (65 mg 325 mg PO DAILY 01/04/24 05/05/24 History iron) tablet tirzepatide (weight loss) 5 mg/0.5 5 mg (0.5 mL) subcut WEEKLY #2 mL 01/27/24 05/05/24 Rx mL subcutaneous pen injector (Zepbound) cholecalciferol (vitamin D3) 50 2,000 unit PO DAILY #90 caps 02/07/24 05/05/24 Rx mcg (2,000 unit) capsule metformin 500 mg tablet 500 mg PO BID #180 tabs 02/17/24 05/05/24 Rx lisinopril 40 mg tablet 40 mg PO DAILY #90 tabs 02/28/24 05/05/24 Rx topiramate 100 mg tablet 200 mg PO HS #90 tabs 04/24/24 06/14/24 Rx spironolactone 25 mg tablet See Rx Instructions .Route 03/24/24 05/05/24 Rx .COMPLEX #90 tabs ascorbic acid (vitamin C) 250 mg 250 mg PO DAILY 05/05/24 05/05/24 History tablet carvedilol phosphate 20 mg 20 mg PO DAILY 05/05/24 05/05/24 History capsule,ext.[id number] multiphase gabapentin 300 mg capsule 300 mg PO HS 05/05/24 05/05/24 History ivbfqznhycec-To-hraq-minerals 18 1 tablet PO DAILY 05/05/24 05/05/24 History mg-0.4 mg tablet tramadol 50 mg tablet 50 mg PO Q8H PRN pain #30 tabs 05/11/24 Rx Patient hx anesthesia problems: none Family hx anesthesia problems: none Results Review: All pre-operative results and documents have been reviewed as part of the pre-operative evaluation. [facility] Past Medical History Medical History Anemia Carpal tunnel syndrome on both sides Chronic obstructive pulmonary disease, unspecified CKD (chronic kidney disease), stage III COVID-19 Hx of renal calculi Hyperlipidemia, unspecified Hypertension Low hemoglobin and low hematocrit Lymphedema, not elsewhere classified Migraine without aura and without status migrainosus, not intractable Morbid obesity Ovarian mass Personal history of pulmonary embolism Polyosteoarthritis, unspecified Right renal stone Type II diabetes mellitus Vitamin D deficiency Surgical History Surgical History H/O prior ablation treatment uterine History of oophorectomy, unilateral S/P patent foramen ovale closure S/P LEVI (total abdominal hysterectomy) Family History Family History Mother Carcinoma of colon Father , Age 85, Lewy body dementia Lewy body dementia Other Unknown family medical history Social History Social History Social History: Never and lives with her mother Smoking status: Never smoker Second hand tobacco smoke exposure: No Alcohol intake: never Substance use: never Substance use type: does not use Lack of Transportation: No Lack of Food: Never True Current Housing: I Have Housing Concerned About Fut
--- NOTE | 2024-05-16 08:50 | SUR.PREOP ---
Addendum entered by Bela Abdi RN 05/16/24 09:03: Dr. Hernandez anesthesiologist states Pt. asymptomatic and has a strong pulse and pt ok to go back for procedure. Original Note: Pt blood pressure 79/35. Manual blood pressure attempted but unsuccessful. Iv started and Dr. Hernandez notified. Orders to give IVF at this time. Continue to monitor.
[2024-05-16 08:52] VITALS: BP 79/35; PULSE 77; RESP 18; TEMP 36.1; O2SAT 94
--- NOTE | 2024-05-16 08:56 | PM.HPGS ---
History of Present Illness History of Present Illness Consent: Risks, benefits, and alternatives have been discussed and questions answered. Patient agrees to proceed with procedure. Chief complaint: other fecal abnormalities Narrative: Phoebe Blackburn is a 59 year old female here with positive cologuard Review of Systems Review of Systems: All systems reviewed & are unremarkable except as noted in HPI and below PMFSH Past Medical History Medical History Anemia Carpal tunnel syndrome on both sides Chronic obstructive pulmonary disease, unspecified CKD (chronic kidney disease), stage III COVID-19 Hx of renal calculi Hyperlipidemia, unspecified Hypertension Low hemoglobin and low hematocrit Lymphedema, not elsewhere classified Migraine without aura and without status migrainosus, not intractable Morbid obesity Ovarian mass Personal history of pulmonary embolism Polyosteoarthritis, unspecified Right renal stone Type II diabetes mellitus Vitamin D deficiency Surgical History Surgical History H/O prior ablation treatment uterine History of oophorectomy, unilateral S/P patent foramen ovale closure S/P LEVI (total abdominal hysterectomy) Family History Family History Mother Carcinoma of colon Father , Age 85, Lewy body dementia Lewy body dementia Other Unknown family medical history Social History Social History Social History: Never and lives with her mother Smoking status: Never smoker Second hand tobacco smoke exposure: No Alcohol intake: never Substance use: never Substance use type: does not use Lack of Transportation: No Lack of Food: Never True Current Housing: I Have Housing Concerned About Future Housing: No Difficulty Paying Gas/Electric Bills: No Difficulty Paying for Meds: No Currently Unemployed: No Education: Bachelor's Degree Difficulty w/ Childcare or Family Care: No Living arrangements: with family Additional living arrangements comments: MOM AND BROTHER Gender identity (if verbalized by the patient): Female Spiritual care concerns: No Meds Home Medications and Allergies Home Medications Medication Instructions Recorded Confirmed Type atorvastatin 40 mg tablet 40 mg PO DAILY 11/08/20 05/05/24 History acetaminophen 325 mg capsule 325 mg PO Q6H PRN Pain 10/30/21 05/05/24 History (Tylenol) dapagliflozin propanediol 10 mg 10 mg PO DAILY 10/23/22 05/05/24 History tablet (Farxiga) ezetimibe 10 mg tablet 10 mg PO DAILY 10/23/22 05/05/24 History mecobalamin (vitamin B12) 1,000 1,000 mcg PO DAILY 10/23/22 05/05/24 History mcg chewable tablet (B12 Active) chlorthalidone 25 mg tablet See Rx Instructions .Route 09/03/23 05/05/24 Rx .COMPLEX #90 tabs rivaroxaban 20 mg tablet (Xarelto) See Rx Instructions .Route 10/06/23 05/05/24 Rx .COMPLEX #90 tabs ferrous sulfate 325 mg (65 mg 325 mg PO DAILY 01/04/24 05/05/24 History iron) tablet tirzepatide (weight loss) 5 mg/0.5 5 mg (0.5 mL) subcut WEEKLY #2 mL 01/27/24 05/05/24 Rx mL subcutaneous pen injector (Zepbound) cholecalciferol (vitamin D3) 50 2,000 unit PO DAILY #90 caps 02/07/24 05/05/24 Rx mcg (2,000 unit) capsule metformin 500 mg tablet 500 mg PO BID #180 tabs 02/17/24 05/05/24 Rx lisinopril 40 mg tablet 40 mg PO DAILY #90 tabs 02/28/24 05/05/24 Rx topiramate 100 mg tablet 200 mg PO HS #90 tabs 03/15/24 05/05/24 Rx spironolactone 25 mg tablet See Rx Instructions .Route 03/24/24 05/05/24 Rx .COMPLEX #90 tabs ascorbic acid (vitamin C) 250 mg 250 mg PO DAILY 05/05/24 05/05/24 History tablet carvedilol phosphate 20 mg 20 mg PO DAILY 05/05/24 05/05/24 History capsule,[id number] multiphase gabapentin 300 mg capsule 300 mg PO HS 05/05/24
[2024-05-16] MEDS: LACTATED RINGERS 1,000 ML 150 ML IV CONT (09:00)
[2024-05-16 09:08] VITALS: BP 82/45; PULSE 80
[2024-05-16 09:30] VITALS: BP 79/44; PULSE 87; RESP 16; O2SAT 100
[2024-05-16 09:34] VITALS: BP 98/54
[2024-05-16 09:35] LABS: Glucose Point of Care 96 mg/dl (65-105)
[2024-05-16 09:40] VITALS: BP 85/41; PULSE 82; RESP 15; O2SAT 100
[2024-05-16 09:50] VITALS: BP 97/57; PULSE 80; RESP 20; O2SAT 100
== END 2024-05-16 10:13 | disposition home or self-care (01) ==
PROVIDERS: PCP Family Medicine; Visit Provider Internal Medicine Gastroenterology
PROC: 0DJD8ZZ Inspection of Lower Intestinal Tract, Via Natural or Artificial Opening Endoscopic (ICD-10-PCS; CPT 45378; principal; 2024-05-16 09:00)
DX: R19.5 Other fecal abnormalities (principal); D12.2 Benign neoplasm of ascending colon; K64.8 Other hemorrhoids; N18.30 Chronic kidney disease, stage 3 unspecified; J44.9 Chronic obstructive pulmonary disease, unspecified; E78.5 Hyperlipidemia, unspecified; I12.9 Hypertensive chronic kidney disease with stage 1 through stage 4 chronic kidney disease, or unspecified chronic kidney disease; E66.01 Morbid (severe) obesity due to excess calories; Z68.43 Body mass index [BMI] 50.0-59.9, adult; Z86.711 Personal history of pulmonary embolism; E11.9 Type 2 diabetes mellitus without complications; E55.9 Vitamin D deficiency, unspecified
CPT/HCPCS: 45385; 82948; 88305; J2001; J2371; J2704; J7120

== ENCOUNTER 2024-12-26 10:47 | Outpatient (CLI) | payer OTHER, SELFPAY ==
--- NOTE | ~2024-12-26 | US_ITS ---
EXAMINATION: US renal BI DATE: 12/26/2024 11:28 INDICATION: Acute kidney failure TECHNIQUE: Multiple ultrasound grayscale images of the kidneys were obtained. COMPARISON: Renal ultrasound dated 06/26/[address] dated 03/04/2022 FINDINGS: The right kidney measures 8.3 x 5.0 x 4.7 cm. The left kidney measures 9.8 x 5.1 x 4.9 cm. The kidney s demonstrate normal echogenicity. There is no hydronephrosis in either kidney. No stones identified . The bladder is normal. IMPRESSION: 1. Normal kidneys without hydronephrosis. Reviewed, dictated and finalized at location A. TING FIXTURES DECORATOR
== END 2024-12-26 10:48 | disposition home or self-care (01) ==
PROVIDERS: PCP Family Medicine; Visit Provider Internal Medicine Nephrology
DX: N18.30 Chronic kidney disease, stage 3 unspecified (principal); N17.9 Acute kidney failure, unspecified; I12.9 Hypertensive chronic kidney disease with stage 1 through stage 4 chronic kidney disease, or unspecified chronic kidney disease
CPT/HCPCS: 76775

== ENCOUNTER 2025-05-29 11:05 | Outpatient (CLI) | payer OTHER, SELFPAY ==
--- NOTE | ~2025-05-29 | XR_ITS ---
EXAMINATION: BONE SURVEY/METASTATIC SURVEY DATE: 05/29/2025 12:52 INDICATION: MGUS TECHNIQUE: A skeletal survey was performed including AP views of the chest, abdomen and pelvis; AP an d lateral/lateral swimmers views of the cervical, thoracic and lumbar spine; lateral view of the skul l, and AP and lateral views of the appendicular skeleton excluding the hands and feet. COMPARISON: None. FINDINGS: Significant degenerative disease is identified within the bilateral knees with near complete oblitera tion of the medial and lateral (to a lesser degree) tibiofemoral joint spaces, with osteophytic bridg ing. Near complete obliteration of the bilateral patellofemoral joints are also present, with osteophyte f ormation. Scattered lucency within the right fibula shaft. Periosteal reaction is also detected within the righ t fibula. Cortical thickening is noted within the bilateral tibia. Significant degenerative disease within the right demonstrating a large calcaneal spur and bony joint narrowing. Significant degenerative disease is also noted within lumbar spine straightening of the normal lordot ic curvature, disc space narrowing and facet arthropathy. No significant degenerative disease detected within the thoracic spine. IMPRESSION: No discrete blastic lesions are identified. Scattered lucency within the right fibula shaft with a small benign-appearing periosteal reaction. Cortical thickening is detected within the bilateral tibia. The bony alterations with MGUS demonstrate increased bone volume, especially within the spine, and al terations within the microarchitecture, not typically visualized with plain film evaluation. Reviewed, dictated and finalized at location A. IMPRESSION: No discrete blastic lesions are identified. Scattered lucency within the right fibula shaft with a small benign-appearing p eriosteal reaction. Cortical thickening is detected within the bilateral tibia. The bony alterations with MGUS demonstrate increased bone volume, especially wi thin the spine, and alterations within the microarchitecture, not typically vis ualized with plain film evaluation.
--- OUTSIDE RECORDS SUMMARY | 2025-05-29 11:10 | XMS_ITS | Clinical Summary ---
Author Organization [facility] al Address [address] [place] [address] Care Team Providers Care Space Systems Operations Superintendent Name Role Phone Yamil Rankin Primary Care Provider [phone] Gregory Agudelo MD Unavailable [phone] Allergies Active Allergy Reactions Criticality Noted Date Comments Latex Hives Medium Penicillins Other (See comments),Unknown Low 2018 As a child Medications traMADol (ULTRAM) 50 mg tablet take 1 tablet by oral route every 6 hours as needed 0 0 3 Active Additional Information Patient taking differently:50 mgoral As needed, Indications: Pain, Reported on 01/01/2022 topiramate (TOPAMAX) 100 mg tablet take 1 Tablet by oral route 2 times every day 0 0 3 Active Additional Information Patient taking differently: 200 mg oral Nightly, Indications: Migraine Prevention, Reported on 01/01/2022 carvedilol CR (COREG CR) 80 mg 24 hr capsule take 1 capsule by oral route every day 0 0 3 Active Additional Information Patient taking differently:80 mgoral Every morning, Indications: hypertension, Reported on 01/01/2022 multivitamin tablet tablet take 1 by Oral route once 0 0 3 Active Additional Information Patient taking differently: 1 tablet oral Every morning, Plus Women's Multivitamin, Reported on 02/25/2021 cholecalciferol (VITAMIN D3) 2,000 unit tablet take 1 by Oral route once 0 0 3 Active Additional Information Patient taking differently: oral Every morning, Indications: supplement, Reported on 01/01/2022 atorvastatin (LIPITOR) 40 mg tabletIndicatio ns:hyperlipidem ia Take 40 mg by mouth every morning 0 Active furosemide (LASIX) 40 mg tabletIndicatio ns:Edema Take 40 mg by mouth every morning 7 Active ferrous sulfate 325 mg (65 mg of elemental iron) tabletIndicatio ns:supplement Take 1 tablet by mouth every morning 1 Active phentermine 37.5 mg capsuleIndicati ons:Weight Loss Management for Obese Patient (BMI >= 30) Take 37.5 mg by mouth every morning 7 Active aspirin 81 mg enteric coated tablet Take 81 mg by mouth every morning Active lisinopriL (PRINIVIL,ZESTR IL) 40 mg tabletIndicatio ns:hypertension Take 40 mg by mouth every morning Active apixaban (Eliquis) 5 mg tablet Take 1 tablet (5 mg total) by mouth 2 (two) times a day 60 tablet 1 Active gabapentin (NEURONTIN) 300 mg capsuleIndicati ons:Pain Take 1 capsule (300 mg total) by mouth 2 (two) times a day 60 capsule 1 1 Active Additional Information Patient taking differently:300 mg oral3 times daily, Indications: Pain, Reported on 01/01/2022 oxyCODONE (ROXICODONE) 5 mg immediate release tabletIndicatio ns:Pain Take 1 tablet (5 mg total) by mouth every 4 (four) hours as needed for pain 20 tablet 1 Active Active Problems Problem Noted Date Diagnosed Date Erythrocytosis 12/23/2021 Tricuspid valve insufficiency 07/23/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 Acute subendocardial infarction 05/07/2016 Calculus of kidney 05/07/2016 Cerebral infarction, unspecified 05/07/2016 Deep vein thrombosis (DVT) 05/07/2016 Overview (01/23/2021): LAST ONE 2003 Essential (primary) hypertension 05/07/2016 Hypercoagulable state 05/07/2016 Hyperlipidemia 05/07/2016 Lymphedema 05/07/2016 Class 3 severe obesity with body mass index (BMI) of 60.0 to 69.9 in adult 05/07/2016 Other abnormal glucose 05/07/2016 Pulmonary hypertension (CMS/HCC) 05/07/2016 Seizure disorder 05/07/2016 Chronic kidney disease, stage 2 (mild) 6 Status post patent foramen ovale closure 016 Vitamin D deficiency 05/07/2016 Immunizations Immunization Administration Dates Next Due Influenza, Quadrivalent, Split, Intramuscular Influenza, Quadrivalent, Spl it, Preservative Free, Intramuscular 11/10/2020,02/02/2019 Influenza, Trivalent, IM (MDV) 09/15/2019,2012 Surgical History Surgery Date Site/Laterality Comments OTHER SURGICAL HISTORY Secundum ASD: 2001 OTHER SURGICAL HISTORY Cardiomyopathy- resolved: OTHER SURGICAL HISTORY DVT/PE: OTHER SURGICAL HISTORY ASD closure with Amplatzer ENDOMETRIAL ABLATION 11/22/2007 - 11/21/2008 COLONOSCOPY has had several WISDOM TOOTH EXTRACTION OOPHERECTOMY Right 1990 CYST REMOVAL top of her head, 1979 KIDNEY STONE SURGERY stent placed 2016 HYSTERECTOMY Medical History Medical History Date Comments Hypertension Hypertension Hx Other Medical Secundum ASD Hx Other Medical Cardiomyopathy- resolved Hx Other Medical DVT/PE Hx Other Medical dyslipidemia Hx Other Medical Hx CVA- paradox ical embolism Anemia Migraines Arthritis Lymphedema Hyperlipidemia COPD (chronic obstructive pulmonary disease) (HC C) Asthma Myocardial infarction (HCC) Seizures (HCC) Stroke (HCC) Family History Medical History Relation Name Comments Coronary artery disease Father Teri nary Artery Bypass Graft; Heart attack Father Parkinsonism Father Anesthesia problems Neg Hx Relation Name Status Comments Father Social History Tobacco Use Types Packs/Day Years Used Date Smoking Tobacco: Never Smokeless Tobacco: Never Alcohol Use Standard Drinks/Week Comments No 0 (1 standard drink = 0.6 oz pur e alcohol) AUDIT-C Answer Date Recorded Q1: How often do you have a drink containing alc ohol? Never 02/28/2021 Average Number of Drinks Not on file 021 Q3: How often do you have si x or more drinks on one occasion? Never 02/28/2021 Comments No Sex and Gender Information Value Date Recorded Sex Assigned at Not on file Legal Sex Female 2:07 AM MANAGER CODE Gender Identity Not on file Sexual Orientation Not on file Obstetrics History Para Term AB IAB SAB Ectopic Multiple Livin g Live Births 0 0 0 0 0 0 0 0 0 0 0 Last Filed Vital Signs Vital Sign Reading Time Taken Comments Blood Pressure 126/79 01/01/2022 4:35 PM MANAGER CODE Pulse 65 01/01/2022 4:35 PM MANAGER CODE Temperature 36.9 C (98.4 F) 01/01/2022 4:35 PM MANAGER CODE Respiratory Rate 22 01/01/2022 4:35 PM MANAGER CODE Oxygen Saturation 92% 01/01/2022 4:35 PM MANAGER CODE Inhaled Oxygen Concentration - - Weight 160.2 kg (353 lb 1.6 oz) 04/10/2021 2:34 PM CDT Height 153.7 cm (5' 0.51) 04/10/2021 2:34 PM CD T Body Mass Index 67.8 04/10/2021 2:34 PM CDT Plan of Treatment Not on file Insurance [employer] [facility] [id number] Advance Directives For more information, please contact: [phone] * Full Code (Latest Code Status on File) Date Activated Date Inactivated Comments 02/28/2021 7:56 PM 03/01/2021 6:40 PM Care Teams Space Systems Operations Superintendent Relationship Specialty Start Date End Date Yamil Rankin DO PCP - General Internal Medicine 01/23/21 Gregory Agudelo MD Referring Physician Obstetrics and Gynecology 01/23/21
--- OUTSIDE RECORDS SUMMARY | 2025-05-29 11:10 | XMS_ITS | Encounter Summary ---
Author Organization [facility] [employer] , [facility] Address [address] [place] [phone] Phone Care Team Providers Care Sales Leader Name Role Phone Yamil Rankin DO Primary Care Provider Unavaila ble Reason for Visit * Reason Comments Med Refill Encounter Details Date Type Department Care Team (Late st Contact Info) Description 06/24/2023 Refill Kamaili [employer], [address] [phone] Yoni Zafar DO [address] [place] [phone] Social History Tobacco Use Types Packs/Day Years Used Date Smoking Tobacco: Never Smokeless Tobacco: Never Alcohol Use Standard Drinks/Week Comments Never 0 (1 standard drink = 0.6 oz pur e alcohol) Comments Unknown Sex and Gender Information Value Date Recorded Sex Assigned at Not on file Legal Sex Female 2:52 PM EDT Gender Identity Not on file Sexual Orientation Not on file documented as of this encounter Plan of Treatment Not on file documented as of this encounter Visit Diagnoses Not on filedocumented in this encounter Care Teams Sales Leader Relationship Specialty Start Date End Date Yamil Rankin DO PCP - General Internal Medicine 06/10/21 documented as of this encounter
--- OUTSIDE RECORDS SUMMARY | 2025-05-29 11:10 | XMS_ITS | Encounter Summary ---
Author Organization [facility] Address [address] [place] [address] Phone Care Team Providers Care Automotive Hardware Engineer Name Role Phone Jose Harrison MD Primary Care Provider [phone] Yamil Rankin DO Primary Care Provider [phone] Gregory Agudelo MD Unavailable [phone] Encounter Details Date Type Department Care Team (Latest Contact Info) Description 07/01/2017 Orders Only WU CONVERSION Scanning, Provider Social History Tobacco Use Types Packs/Day Years Used Date Smoking Tobacco: Never Alcohol Use Standard Drinks/Week Comments No 0 (1 standard drink = 0.6 oz pur e alcohol) Comments Unknown Sex and Gender Information Value Date Recorded Sex Assigned at Not on file Legal Sex Female 2:07 AM FUNERAL WORKERS Gender Identity Not on file Sexual Orientation Not on file documented as of this encounter Plan of Treatment Not on file documented as of this encounter Procedures Procedure Name Priority Date/Time Associated Diagnosis Comments VASCULAR LABORATORY REPORT 07/01/2017 7:51 AM CDT VASCULAR LABORATORY REPORT 07/01/2017 7:51 AM CDT documented in this encounter Results * VASCULAR LABORATORY REPORT (07/01/2017 7:51 AM CDT) Anatomical Region Laterality Modality Ultrasound us Provider Scanning CV VASCULAR PROCEDURES Final R esult * VASCULAR LABORATORY REPORT (07/01/2017 7:51 AM CDT) Anatomical Region Laterality Modality Ultrasound us Provider Scanning CV VASCULAR PROCEDURES Final R esult documented in this encounter Visit Diagnoses Not on filedocumented in this encounter Care Teams Automotive Hardware Engineer Relationship Specialty Start Date End Date Jose Harrison MD [address] [place] [id number] PCP - General 07/01/17 01/22/21 Yamil Rankin DO [address] [place] [id number] PCP - General Internal Medicine 01/23/21 Gregory Agudelo MD [address] [place] [id number] Referring Physician Obstetrics and Gynecology 01/23/21 documented as of this encounter
--- OUTSIDE RECORDS SUMMARY | 2025-05-29 11:10 | XMS_ITS | Clinical Summary ---
Author Organization [facility] Address [address] [place] [address] Care Team Providers Care Die Casting Supervisor Name Role Phone Unavailable Primary Care Provider Unavailabl e Allergies Active Allergy Reactions Criticality Noted Date Comments Latex Hives,Rash High 08/31/2019 Medications atorvastatin (LIPITOR) 40 mg tablet Take 1 Tablet by mouth daily. 5 Active carvedilol (COREG CR) 20 mg Controlled Release 24 hour capsule Take 20 mg by mouth daily. Active Farxiga 10 mg Tablet Take 1 Tablet by mouth daily. 5 Active ezetimibe (ZETIA) 10 mg tablet Take 1 Tablet by mouth daily. 5 Active lisinopriL (PRINIVIL) 5 mg tablet Take 1 Tablet by mouth daily. 5 Active Xarelto 15 mg Tablet Take 1 Tablet by mouth daily. 5 Active Mounjaro 7.5 mg/0.5 mL Pen Injector Inject 7.5 mg by subcutaneous injection every 7 days. 5 Active topiramate (TOPAMAX) 100 mg tablet Take 200 mg by mouth daily at bedtime. Active traMADol (ULTRAM) 50 mg tablet Take 50 mg by mouth every 8 hours as needed for Pain. 5 Active CALCIUM CARBONATE-ANDRES MIN D3 ORAL Take by mouth. Act geneva cyanocobalamin 1,000 mcg Tablet Take 1,000 mcg by mouth daily. Active ascorbic acid (VITAMIN C) 250 mg Tablet, Chewable Take by mouth. Activ e saliva stimulant combo #2 (BIOTENE) Liquid 1 Squirt by Mouth/Throat route see administration instructions. Active ferrous fumarate (FERRETTS) 325 mg (106 mg iron) Tablet Take 325 mg by mouth. Active Active Problems No known active problems Encounters Date Type Department Care Team Description 05/23/2025 3:00 PM CDT Office Visit [facility] Oncology and Hematology - [place] [address] [place] [address] Arnav Arreguin MD MGUS (monoclonal gammopathy of unknown significance) (Primary Dx) from Last 3 Months Family History Medical History Relation Name Comments No Known Problems Brother Cancer Mother No Known Problems Sister Relation Name Status Comments Brother Alive Father Mother Alive Sister Alive Social History Tobacco Use Types Packs/Day Years Used Date Smoking Tobacco: Never Smokeless Tobacco: Never Alcohol Use Standard Drinks/Week Comments Never 0 (1 standard drink = 0.6 oz pur e alcohol) Comments Unknown Sex and Gender Information Value Date Recorded Sex Assigned at Not on file Legal Sex Female 10:10 AM CDT Gender Identity Not on file Sexual Orientation Not on file Last Filed Vital Signs Vital Sign Reading Time Taken Comments Blood Pressure 103/70 05/23/2025 2:55 PM CDT Pulse 81 05/23/2025 2:55 PM CDT Temperature 36.9 C (98.4 F) 05/23/2025 2:55 PM CDT Respiratory Rate 16 05/23/2025 2:55 PM CDT Oxygen Saturation 93% 05/23/2025 2:55 PM CDT Inhaled Oxygen Concentration - - Weight 115.2 kg (254 lb) 05/23/2025 2:55 PM CDT Height 152.4 cm (5') 05/23/2025 2:55 PM CDT Body Mass Index 49.61 05/23/2025 2:55 PM CDT Plan of Treatment Upcoming Encounters Date Type Department Care Team (Late st Contact Info) Description 06/06/2025 4:30 PM CDT Telephone Check Up [facility] Oncology and Hematology - [place] [address] [place] [address] Arnav Arreguin MD [id number] [facility] [address] [place] [address] Health Maintenance Due Date Last Done Comments Pre-Diabetes and Diabetes Screening 1965 DTAP/TDAP/TD VACCINES (1 - Tdap) 1984 HPV/Cotest (21-29) 1986 CERVICAL CANCER SCREENING 1995 HPV/Cotest (30-65) 1995 PAP SMEAR 1995 BREAST CANCER SCREENING 2005 COLORECTAL SCREENING 2010 Colorectal Cancer Screening 2010 FIT-DNA Q 3 years 2010 FIT/FOBT Q 1 year 2010 Flex Sig/CT Colonography Q 5 years 2010 ZOSTER VACCINE (1 of 2) 2015 RSV VACCINE (60+ or ) (1 - Risk 60-74 years 1-dose series) 2025 INFLUENZA VACCINE (#1) 2025 0, 09/15/2019, 02/02/2019, Additional history exists HEPATITIS B VACCINES Aged Out No long er eligible based on patient's age to complete this topic Insurance [facility] [employer]
--- OUTSIDE RECORDS SUMMARY | 2025-05-29 11:10 | XMS_ITS | Data Portability ---
Author Organization [facility] JOSE ALEJANDROMarge Ellie Address [address] [place] [address] Care Team Providers Care Orthotic And Prosthetic Technician Name Role Phone PAVAN SANFORD Speech Coach Unavailable KATERIN SCHWARTZ Primary Care Provider Assessment Encounter Date Assessment Date Assessment LastModified by Organization Details LastModified Time 01/17/2024 01/17/2024 Asked about vaccines. Recommended she talk to her primary care provider because he is most familiar with her medical history. 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 Cologuard negative fall 2019. Will reach out to her to see if she has discussed this with her primary care provider or if she would like me to order a repeat test since she is due. kfarroll Not available 05/03/2024 18:19:18 Plan of Treatment Reminders Order Date Submit Date Provider Last Modified By Organization Details Last Modified Time Details Appointments None recorded . Lab None recorded . Referral None recorded . Procedures None recorded . Surgeries None recorded . Imaging MAMMO, screenin g, bilatera l 2022 023 [facility], [address], [place], [address], 10:50:22 MAMMO, screenin g, bilatera l 2020 021 [facility], [address], [place], [address], 08:49:43 Medication Orders multivit serrano tablet 2020 021 [id number], [address], [place], [place], [id number], 14:44:57 Calcium with Vitamin D 600 mg-10 mcg (400 unit) tablet 2020 021 [facility] #[id number], [address], [place], [place], [id number], 14:45:00 Patient TargetsNo targets recorded. Patient Instructions Encounter Date Encounter Id Patient Instructions Last Modified By Organization Details Last Modified Time 06/25/2021 [id number] mammogram: about this test afua Not available 06/25/2021 14:57:01 body mass index: care instructions afua Not available 06/25/2021 14:57:01 learning about healthy weight lorene Not available 06/25/2021 14:57:01 07/14/2022 [id number] A healthy lifestyle: care instructions [email or web address] Not available 07/21/2022 07:06:06 03/16/2023 [id number] learning about breast cancer screening [email or web address] Not available 03/16/2023 15:44:51 A healthy lifestyle: care instructions [email or web address] Not available 03/16/2023 15:29:05 GISSELLE FormanS, Discussed with FRENCH [email or web address] Not available 03/16/2023 16:02:42 Reason for Referral None Reported. Results Created Date Observation Date Name Description Value Unit Range Abnormal Flag Note LastModifiedBy Organization Detail LastModifiedTime 07/23/20 21 07/23/2021 trans -thor acic echoc ardio gram (TTE) (PROC ) No observ ation record ed. afua [facility] [address], [place], [address], 07/23/2021 17:21:52 07/29/20 22 07/29/2022 trans -thor acic echoc ardio gram (TTE) (PROC ) No observ ation record ed. [email or web address] [facility] [address], [place], [address], 07/30/2022 10:52:47 04/28/20 24 04/27/2024 MAMMO , scree carson, bilat eral No observ ation record ed. [facility] [address], [place], [address], 05/05/2024 09:18:09 02/24/20 25 02/23/2025 US, echoc ardio gram, trans thora cic, compl ete No observ ation record ed. [email or web address] [facility] [address], [place], [address], 02/28/2025 12:31:02 04/12/20 25 04/11/2025 PFT, compl ete No observ ation record ed. [email or web address] [facility] [address], [place], [address], 04/23/2025 13:38:57 Result Notes None recorded. Problems Name Problem SNOMED Code Status Onset Date Resolution Date Notes Provider Name and Address Organization Details Recorded Time Lymphedem a 222373567 Active 2018 KATELYN Al 9 11:44:41 History of deep vein thrombosi s 759801736 Completed 201802/02/2019 KATELYN Al SINELL 9 11:45:30 Body mass index 40+ - severely obese 109153136 Active 2018 KATELYN Al SINELL 9 11:45:10 History of deep vein thrombosi s 228698937 Completed 201802/02/2019 KATELYN Al SINELL 9 11:45:30 History of hemorrhag ic stroke with hemiplegi a 550548779207 106 Active 2018 Gregory gee, [place] - [place] 9 11:46:27 Menorrhag ia 225556552 Active 2018 Gregory gee[place] - [facility] 9 11:46:40 Primary endometri oid carcinoma of endometri um 571070254 Active 2020 Gregory gee, [place] - [place] 1 07:07:06 History of total hysterect dinah with bilateral salpingo- oophorect dinah 938706766 Active 2020 Gregory gee, [place] - [facility] 1 07:07:43 Problem Notes None recorded. Procedures Surgical History Date Name Laterality Status Provider Name and Address Organization Details Recorded Time 01/10/20 22 Date of Last Mammogram completed Kathleen Dang MA [facility] 07/14/2022 14:13:05 03/01/20 21 Total hysterectomy completed JAIME ANGELES Attn: Accounting,[address] [place], [address], [facility] - SI 09/22/2023 12:50:35 02/26/20 21 Date of Last Pap Smear completed JAIME ALARCON Attn: Accounting[address] [place], [address], [facility] - SI 07/14/2022 14:40:59 11/22/19 10 Most Recent Mammogram completed Kathleen Dang MA [facility] 09/15/2017 15:55:13 11/22/18 89 salpingo-oophore ctomy completed Gregory Agudelo [place] - [place] 02/02/2019 11:44:12 Imaging Results None recorded. Procedure Notes None recorded. Medical Equipment None Reported. Allergies Allergen ID Allergen Name Allergen Category Reaction Reaction Severity Criticality Documentation Date Start Date Code Code System Note Provider Name and Address Organization Details Recorded Time 97159 latex environme nt,medica tion Not available Not available Not available 09/15/20172023 29409 91 RxNorm Not Available Esvyda! 4 13:35:44 Medications Name Sig Start Date Stop Date Status Note LastModified by Organization Details LastModified Time vitamin d3 2000iu capsules TAKE 1 CAPSULE BY MOUTH DAILY 07/14 completed Not Available Not Available Not Available multivitam in tablet TAKE 1 TABLET BY MOUTH EVERY DAY 07/14 completed Not Available Not Available Not Available furosemide 40 mg tablet TAKE 1 TABLET BY MOUTH EVERY DAY 07/14 completed Not Available Not Available Not Available medroxypro gesterone 10 mg tablet TAKE 1 TABLET BY MOUTH EVERY DAY 07/14 completed Not Available Not Available Not Available atorvastat in 40 mg tablet TAKE 1 TABLET BY MOUTH EVERY DAY active Not Available Not Available No t Available metformin 500 mg tablet TAKE 1 TABLET BY MOUTH TWICE DAILY active Not Available Not Available No t Available doxycyclin e hyclate 100 mg capsule 02/02 completed Not Available Not Available Not Available cefuroxime axetil 250 mg tablet 02/02 completed Not Available Not Available Not Available azithromyc in 250 mg tablet 12/03 completed Not Available Not Available Not Available medroxypro gesterone 2.5 mg tablet TAKE 4 TABLETS BY MOUTH DAILY 07/14 completed Not Available Not Available Not Available hydrocodon e 5 mg-acetami nophen 325 mg tablet 02/02 completed Not Available Not Available Not Available Nystop 100,000 unit/gram topical powder 07/14 completed Not Available Not Available Not Available naltrexone 50 mg tablet 07/14 completed Not Available Not Available Not Available phentermin e 37.5 mg tablet TAKE 1 TABLET BY MOUTH EVERY DAY 07/14 completed Not Available Not Available Not Available chlorthali done 25 mg tablet TAKE 1 TABLET BY MOUTH EVERY DAY 08/25 completed 08/24/24 cardio note advise to d/c this med. Not Available Not Available Not Available chlorthali done 50 mg tablet 07/14 completed Not Available Not Available Not Available ciprofloxa dean 500 mg tablet TAKE 1 TABLET BY MOUTH TWICE DAILY 03/16 completed Not Available Not Available Not Available sulfametho xazole 800 mg-trimeth oprim 160 mg tablet Take 1 tablet every 12 hours by oral route for 10 days. 07/14 completed Not Available Not Available Not Available tramadol 50 mg tablet TAKE 1 TABLET BY MOUTH EVERY 8 HOURS NEEDED FOR PAIN active Not Available Not Available No t Available spironolac tone 25 mg tablet TAKE 1 TABLET BY MOUTH DAILY active Not Available Not Available No t Available bupropion HCl 100 mg tablet 06/25 completed Not Available Not Available Not Available oseltamivi r 75 mg capsule 07/14 completed Not Available Not Available Not Available gabapentin 300 mg capsule TAKE 1 CAPSULE BY MOUTH EVERY DAY active Not Available Not Available No t Available lisinopril 40 mg tablet TAKE 1 TABLET BY MOUTH DAILY active Not Available Not Available No t Available topiramate 100 mg tablet TAKE 2 TABLETS BY MOUTH AT BEDTIME active Not Available Not Available No t Available diazepam 5 mg tablet 02/02 completed Not Available Not Available Not Available ezetimibe 10 mg tablet TAKE 1 TABLET BY MOUTH EVERY DAY active Not Available Not Available No t Available fenofibrat e nanocrysta llized 145 mg tablet 06/25 completed Not Available Not Available Not Available carvedilol phosphate ER 80 mg capsule,ex t.release2 4hr multiphase TAKE 1 CAPSULE BY MOUTH DAILY WITH A MEAL AND FOOD 01/17 completed Not Available Not Available Not Available carvedilol phosphate ER 40 mg capsule,ex t.release2 4hr multiphase 01/17 completed Not Available Not Available Not Available carvedilol phosphate ER 20 mg capsule,ex t.release2 4hr multiphase TAKE 1 CAPSULE BY MOUTH EVERY DAY active Not Available Not Available No t Available FeroSul 325 mg (65 mg iron) tablet TAKE 1 TABLET BY MOUTH EVERY DAY active Not Available Not Available No t Available cholecalci ferol (vitamin D3) 50 mcg (2,000 unit) capsule TAKE 1 CAPSULE BY MOUTH EVERY DAY active Not Available Not Available No t Available Calcium with Vitamin D 600 mg-10 mcg (400 unit) tablet Take 1 tablet twice a day by oral route. 07/14 completed Not Available Not Available Not Available Xarelto 20 mg tablet TAKE 1 TABLET BY MOUTH EVERY DAY active Not Available Not Available No t Available Eliquis 5 mg tablet TAKE 1 TABLET BY MOUTH TWICE DAILY 07/14 completed Not Available Not Available Not Available Farxiga 10 mg tablet TAKE 1 TABLET BY MOUTH EVERY DAY active Not Available Not Available No t Available Gemtesa 75 mg tablet TAKE 1 TABLET BY MOUTH DAILY 06/12 /2024 completed Not Available Not Available Not Available Paxlovid 300 mg (150 mg x 2)-100 mg tablets in a dose pack FOLLOW PACKAGE DIRECTIO NS. 01/17 completed Not Available Not Available Not Available Mounjaro 5 mg/0.5 mL subcutaneo us pen injector INJECT 5 MG UNDER THE SKIN ONCE A WEEK active Not Available Not Available No t Available Mounjaro 2.5 mg/0.5 mL subcutaneo us pen injector ADMINIST ER 2.5 MG UNDER THE SKIN WEEKLY FOR 4 WEEKS active Not Available Not Available No t Available Vitals Date Recorded Body height Body mass index (BMI) Body weight Oxygen saturation Oxygen saturation in Arterial blood by Pulse oximetry Heart rate Systolic And Diastolic Provider Name and Address Organization Details Last Updated DateTime 4 153.67 cm 65.5 kg/m2 118795 g 93 % 93 % 72 /min 130/80 mm[Hg] Aminata Lopez [facility] 4 15:45:22 Date Recorded Body height Body mass index (BMI) Body weight Systolic And Diastolic Provider Name and Address Organization Details Last Updated DateTime 03/16/2023 153.67 cm 65.5 kg/m2 857101 g 132/86 mm[Hg] Kristine Chun [facility] 03/16/2023 15:08:53 Date Recorded Body height Body mass index (BMI) Body weight Oxygen saturation Oxygen saturation in Arterial blood by Pulse oximetry Heart rate Systolic And Diastolic Provider Name and Address Organization Details Last Updated DateTime 4 153.67 cm 58.6 kg/m2 488715. 67 g 94 % 94 % 72 /min 128/80 mm[Hg] Aminata Lopez [facility] 4 16:07:24 Date Recorded Body height Body mass index (BMI) Body weight Systolic And Diastolic Provider Name and Address Organization Details Last Updated DateTime 06/25/2021 152.4 cm 68.4 kg/m2 703927.33 g 134/74 mm[Hg] Venita Burnham [facility] 06/25/2021 11:52:16 Date Recorded Systolic And Diastolic Provider Name and Address Organization Details Last Updated DateTime 07/14/2022 115/75 mm[Hg] JAIME ALARCON Attn: Accounting,[address] , [place], [address], [place] - [place] 07/14/2022 14:46:27 Date Recorded Body height Body mass index (BMI) Body weight Provider Name and Address Organization Details Last Updated DateTime 07/14/2022 153.67 cm 67.6 kg/m2 745831.51 g Kathleen Dang [place] - [place] 07/14/2022 14:11:08 Social History Question Answer Notes LastModified by Organizat ion Details LastModified Time Tobacco Smoking Status Never Smoker Kathleen Dang [place] null, [place] - [place] 09/15/2017 16:08:08 Do You Have An Advance Directive? No Information not available 09/15/2017 Is Blood Transfusion Acceptable In An Emergency? Yes Information not available 09/15/2017 What Is Your Level Of Caffeine Consumption? Occasional Information not available 09/15/2017 How Much Tobacco Do You Chew? None Information not available 09/15/2017 What Type Of Diet Are You Following? REGULAR Following Dietican Diet From Hospital Information not available 09/15/2017 Which Illicit Or Recreational Drugs Have You Used? None Information not available 09/15/2017 Education 4 Year College Information not available 09/15/2017 Live Alone Or With Others? With Others Pt Lives C Mother And Brother Information not available 09/15/2017 What Was The Date Of Your Most Recent Tobacco Screening? 05/03/2024 Information not available 05/03/2024 How Many Children Do You Have? 0 Information not available 09/15/2017 Performs Monthly Self-breast Exam? Yes Information not available 09/15/2017 Do You Use Protection During Sex? Always Information not available 09/15/2017 What Is Your Relationship Status? Single Information not available 09/15/2017 Seat Belts Used Routinely Yes Information not available 09/15/2017 Are You Sexually Active? No Information not available 09/15/2017 Do You Have Smoke And Carbon Monoxide Detectors In Your Home? Yes Information not available 07/14/2022 Are You Passively Exposed To Smoke? No Information not available 07/14/2022 How Much Tobacco Do You Smoke? No Information not available 02/02/2019 Do You Use Sunscreen Routinely? No Information not available 09/15/2017 Has Tobacco Cessation Counseling Been Provided? No Information not available 02/02/2019 On What Date Was Tobacco Cessation Counseling Provided? 05/03/2024 Afua Answered No To The Tobacco Cessation Counseling Provided Question On 02/02/2019. Information not available 05/03/2024 How Many Years Have You Smoked Tobacco? 0 Information not available 02/02/2019 Sex: Unknown Functional Status Question Answer Note LastModified by Organizat ion Details LastModified Time Do you use any illicit or recreational drugs? No Information not available 07/14/2022 Do you or have you ever used any other forms of tobacco or nicotine? No Information not available 07/14/2022 What is your level of alcohol consumption? None Information not available 09/15/2017 Do you or have you ever used smokeless tobacco? Never used smokeless tobacco Information not available 12/03/2020 Are you currently employed? 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 Never used electronic cigarettes Information not available 12/03/2020 What is your exercise level? Moderate Information not available 09/15/2017 Mental Status None recorded. Family History Relationship Description Onset Age of this Age Resolved Age Notes LastModified by Organization Details LastModified Time Mother Family history of colorectal cancer 72 colono sopy bag Not available 09/15/2017 15:58:01 Father Senile dementia of the Lewy body type [email or web address] Not available 02/02 11:29:02 Father Parkinson's disease mwasserman Not available 02/02 11:29:10 Medical History Condition Response Other N High Blood Pressure Y Breast Cancer N Thyroid Problems N Kidney or Bladder Problems Y GI Problems N Depression Y Blood Clots Y Lung Disease Y Acne N Breast Problem N Eating Disorder Y Anemia Y Anesthesia Complications N Headaches/Migraines Y Anxiety Disorder N Diabetes N Ovarian Cancer N Muscle, Joint, or Bone Problems Y Blood Transfusions Y Seizures/Epilepsy Y Polyps N Infertility N Acid Reflux (GERD) N Cancer N Abuse/Domestic Violence N Asthma N Endometriosis N High Cholesterol Y Hepatitis N Liver Disease N Heart Disease Y Pre-Eclampsia N Osteoporosis Y Gynecological History Statement/Question Response Abnormal Pap N Date of Last Mammogram 01/10/2022 STIs/STDs N HPV Vaccine N Most Recent Mammogram 11/22/2009 Current Control Method Hysterectom y Sexually Active? N Menses Monthly N Date of Last Pap Smear 02/25/2021 Sexual Problems? N LMP Approximate Desired Control Method None Obstetrics History GPAL:G 0 P 0 0 0 0 Type Value Multiple Births 0 Full Term 0 Induced 0 Spontaneous 0 Premature 0 Living 0 Ectopics 0 Total 0 Immunizations Vaccine Type Date Status Note Provider Nam e and Address Organization Details Recorded Time Influenza, split virus, quadrivalent, preservative 7 completed Not Available [facility] 12/09/2019 02:44:19 Influenza, split virus, quadrivalent, PF 9 completed Not Available [facility] 12/09/2019 02:37:30 Past Encounters Encounter ID Performer Location Encounter Start Date Encounter Closed Date Diagnosis/Indication Diagnosis SNOMED-CT Code Diagnosis ICD10 Code Diagnosis Note [id number] [facility] [facility]PECT[facility]) [address] [place] [id number] 09/15/2017 14:31:47 09/15/2017 17:07:29 Screening mammography 22287189 Z12.31 Administra tion of influenza vaccine 11262006 Z23 [id number] Gregory Agudelo MD [facility] (HANDBAG FRAMES INSPECTOR) [address] [place] [id number] 02/02/2019 10:39:26 02/02/2019 15:31:34 Administration of influenza vaccine 49418560 Z23 Menorrhagia 888888632 N9 2.0 [place] [facility] Body mass index 40+ - severely obese 620819219 Z68.44 Gynecologi c examination 10738226 Z01.419 Z11.51 Abscess of groin 3365548 9 L02.214 message via portal to start pt on bactrim for vaginal abscess [id number] MD Ana Rivera (HANDBAG FRAMES INSPECTOR) [address] [place] [address] [id number] 0 12/03/2020 07:57:02 12/04/2020 12:09:35 Body mass index 40+ - severely obese 047696559 Z68.44 BMI 64!! Menorrhagia 729845799 N9 2.0 transfuse at [place] Hgb4!!! Anemia 114481823 D64.9 tranfused at [place] 2020 [id number] MD Ana Rivera (HANDBAG FRAMES INSPECTOR) [address] [place] [address] [id number] 06/25/2021 11:23:08 06/28/2021 10:04:09 Gynecologic examination 95816723 Z01.419 Z11.51 Body mass index 40+ - severely obese 091398897 Z68.44 BMI 64!! History of hemorrhagic stroke with hemiplegia 3928885041 59770 I69.359 History of total hysterectomy with bilateral salpingo-oophorectomy 021801578 Z90.79 Primary en dometrioid carcinoma of endometrium 029058399 C54.1 Screening mammography 24 861358 Z12.31 [id number] JAIME ALARCON (HANDBAG FRAMES INSPECTOR) [address] [place] [address] [id number] 07/14/2022 13:54:46 07/21/2022 08:20:15 Well woman monitoring check done 278258593 Z76.89 Cervical cancer screening: Last Pap Februaryreast cancer screening: Last mammogram Decolono scopy: UTDDiet/ex ercise: Counseled regarding importance of physical activity, healthy diet and appropriat e calcium intake.RTC in 6 mo Endometrial carcinoma 25 0509367 C54.1 Stage 1A s/p RATLH/LSO/ RS/SLNB February 2021. Had last follow up with water sander onc Dec 2021. Needs to monitor yearly. Morbid obesity 320035700 E66.01 BMI 67.6. Recommende d a balanced diet with an emphasis on fruits, vegetables , whole grains, legumes, lean protein, and mono/polyu nsaturated fats. [id number] JAIME ALARCON (HANDBAG FRAMES INSPECTOR) [address] [place] [address] [id number] 0 03/16/2023 14:44:02 03/23/2023 11:09:12 Gynecologic examination 63552788 Z01.419 Cervical cancer screening: Last Pap NIL2020, no longer indicated due to hysterecto myBreast cancer screening: Last mammogram Dec 2021, [employer] copy: iet/e xercise: Counseled regarding importance of physical activity, healthy diet and appropriat e calcium intake.RTC in 1yr Endometrial carcinoma 25 3754645 C54.1 Stage 1A s/p RATLH/LSO/ RS/SLNB February 2021 at [place]. Needs to monitor yearly now. Morbid obesity 361963891 E66.01 BMI 65.5. Recommende d a balanced diet with an emphasis on fruits, vegetables , whole grains, legumes, lean protein, and mono/polyu nsaturated fats. Screening for malignant neoplasm of breast 061299219 Z12.31 annual screening order provided [id number] MD Ana Overton (Adult Med) [address] [place] [address] [id number] 01/17/2024 15:26:38 01/18/2024 09:18:26 Endometrial carcinoma 393663658 C54.1 Will return for pelvic exam. Does not need PAP because had complete hysterecto my. Screening for malignant neoplasm of breast 229286241 Z12.39 Breast exam normal. Has mammogram scheduled for April. Body mass index 40+ - severely obese 753627447 Z68.44 Working with primary care provider on this. Recently started on Mounjaro. Screening for malignant neoplasm of colon 834206122 Z12.11 Recently did Cologuard. Cerebrovas cular accident 877016281 I63.9 History of CVA per patient history which causes some weakness on left side. Patent foramen ovale 204 704276 Q21.12 Followed by cardiology . [id number] MD Ana Overton (Adult Med) [address] [place] [address] [id number] 05/03/2024 15:31:30 05/04/2024 15:26:29 Body mass index 40+ - severely obese 098385322 Z68.44 Working with primary care provider on this. Recently started on Mounjaro. Endometrial carcinoma 25 3804030 C54.1 History of endometria l adenocarci noma. No abnormalit y on exam today. Will return for yearly exams. Asked her to seek immediate medical attention if she has any vaginal bleeding. Health Concerns Section Related Observation LastModified by Organization Detai ls LastModified Time None Recorded Concern Status LastModified by Organization Details LastModified Time None Recorded Advance Directives Directive N: Payers Insurance Date Sequence Insurance Name Policy Number Policy Stark Covered Member ID Stark Member ID Guarantor Name 05/04/2024 1 [employer] - [employer] [id number] [employer] [id number] OI [id number] SOI [employer] 05/04/2024 1 [employer] - [employer] [id number] [employer] [id number] OI [employer] 06/25/2021 1 [employer] - DOS PRIOR TO 21 - [facility] [employer] [facility] (HMO) [id number] [employer] [id number] [employer] Notes Date Note Type Note Provider Name and Address Organization Details Recorded Time 06/25/2021 text/html Annual GYNReport ed bypatient.Menstrua l cycle:Perimenopaus al Urinary symptoms:No hematuria; No incontinence Vulva:No genital lesion Vagina:Normal vaginal discharge Breast:No breast pain; No breast lump; No nipple discharge Sexual complaints:No sexual complaints; No pain during intercourse; Normal libido Menopausal Symptoms:No menopausal symptoms; Normal vaginal lubrication Psychological symptoms:No depression; No anxiety; No PMDD 56yo CF here for annual exam laparoscopic salpingo-oophorect dinah 1988 for benign tumor, menorrhagia requiring hospitalization/IC U at [place] in 2017, no hx of abnormal pap Gregory KATELYN Rivas - [facility]ARA 06/25/2021 18:04:56 07/14/2022 text/html Annual GYNReport ed bypatient.History: no gynecologic complaints Urinary symptoms:No hematuria Vulva:No genital lesion Vagina:Normal vaginal discharge Breast:No breast pain; No breast lump; No nipple discharge Menopausal Symptoms:No menopausal symptoms; Normal vaginal lubrication Psychological symptoms:No depression; No anxiety; No PMDD Preventive measures:Encourage self breast examination; Encourage no tobacco use; Encourage regular mammograms starting age 40; Mammogram performed within the past year; Up to date on colonoscopy screening 57yo G0 F with PMHx of endometrial carcinoma s/p RATLH/LSO/RS/SLNB February 2021, obesity, CVA, DVT/PE, HTN, RLD, lymphedema, seizure d/o presenting to establish care. Former pt of Dr. Agudelo. Follows with water sander/onc at [facility], last visit Dec 2021. She has no concerns today. JAIME ALARCON Attn: Accounting[address] [place], [address], [facility] 07/27/2022 14:30:03 03/16/2023 text/html Annual GYNReport ed bypatient.Urinary symptoms:No hematuria Vulva:No genital lesion Vagina:Normal vaginal discharge Breast:No breast pain; No breast lump; No nipple discharge Menopausal Symptoms:No menopausal symptoms;Inadequac y of lubrication of vaginal mucosa Psychological symptoms:No depression;Anxiety Preventive measures:Encourage self breast examination; Encourage no tobacco use; Encourage regular mammograms starting age 40; Needs to schedule mammogram; Up to date on colonoscopy screening 57yo G0 F with PMHx of endometrial carcinoma s/p RATLH/LSO/RS/SLNB February 2021, obesity, CVA, DVT/PE, HTN, RLD, lymphedema, seizure d/o presenting for F/u.She complaints of vaginal dryness, denies urinary, breast complaints. JAIME ALARCON Attn: Accounting[address] [place], [address], [facility] 04/06/2023 08:45:47 01/17/2024 text/html history of endometrial cancer, yearly visits, due for mammogram, scheduled for April,-1990 had hysterectomy, took whole uterus out, has had no bleeding, doing Cologuard, last did it three years ago, started Monjaro, Monjaro prescribed by primary care physician, sees outbound sales professional for hole in heart (PFO closed), couldn't walk right after uterus removed, left side weak after AK and seizures and CVA, had breast exam year before last, Salena Krueger MD Attn: Accounting[address] [facility], [place], [address], [facility] 01/18/2024 09:41:21 05/03/2024 text/html here for pelvic exam, supposed to have yearly evaluation after having endometrial cancer, had a total hysterectomy, was given Mounjaro by PMD and has been loosing weight Salena Krueger MD Attn: Accounting[address] [facility], [place], [address], [facility] 05/03/2024 18:20:22 OBGyn Episode No OBEpisode recorded.
--- OUTSIDE RECORDS SUMMARY | 2025-05-29 11:10 | XMS_ITS | Encounter Summary ---
Author Organization [facility] [employer] [facility] Address [address] [place] [phone] Phone Care Team Providers Care Visualization Developer Name Role Phone Yamil Rankin DO Primary Care Provider Unavaila ble Reason for Visit * Reason Comments Med Refill Encounter Details Date Type Department Care Team (Late st Contact Info) Description 04/28/2022 Refill [facility], [address] [address] Yoni Zafar DO [address] [place] [id number] Social History Tobacco Use Types Packs/Day [...] on filedocumented in this encounter Care Teams Visualization Developer Relationship Specialty Start Date End Date Yamil Rankin DO PCP - General Internal Medicine 06/10/21 documented as of this encounter
--- OUTSIDE RECORDS SUMMARY | 2025-05-29 11:10 | XMS_ITS | Clinical Summary ---
Author Organization [facility] Address [address] [place] [id number] Phone Care Team Providers Care Cardiopulmonary Technician Name Role Phone Unavailable Primary Care Provider Unavailabl e Allergies Active Allergy Reactions Criticality Noted Date Comments Latex Rash High 08/31/2019 Penicillins 08/31/2019 Medications lisinopril (PRINIVIL,ZESTR IL) 40 MG tablet TAKE 1 TABLET BY MOUTH DAILY 12 08/12/2016 Active fenofibrate (TRICOR) 145 MG tablet 1 daily 01/25/2016 Active Multiple Vitamin (MULTIVITAMIN) capsule 1 dialy 01/25/2016 Active cholecalciferol (VITAMIN D-3) 2000 units capsule 1 dialy 01/25/2016 Active furosemide (LASIX) 40 MG tablet 1 tablet (40 mg) orally daily 0 06/16/2017 Active traMADol (ULTRAM) 50 MG tablet prn 01/25/2016 Active topiramate (TOPAMAX) 100 MG tablet 2 daily 01/25/2016 Active carvedilol CR (COREG CR) 80 MG 24 hr capsule 1 dialy 01/25/2016 Active gabapentin (NEURONTIN) 300 MG capsule 1 tid 01/25/2016 Active phentermine 37.5 MG capsule 1 capsule (37.5 mg) orally daily 0 06/16/2017 Active Efinaconazole (JUBLIA) 10 % solution prn 01/25/2016 Active apixaban (ELIQUIS) 5 MG tablet 1 bid 0 05/18/2018 Active Active Problems Problem Noted Date Diagnosed Date Lymphedema 02/02/2019 History of hemorrhagic stroke with hemiplegia Calculus of kidney 05/18/2018 Chronic kidney disease, stage 3 (moderate) 01/26 Essential (primary) hypertension 01/27/2016 Immunizations Immunization Administration Dates Next Due Influenza, Injectable, Quadrivalent 09/15/2017 Influenza, Injectable, Quadrivalent, Preservativ e Free 02/02/2019 Family History Medical History Relation Comments Malignant neoplastic disease Mother Kidney disease Neg Hx Kidney stone Neg Hx Relation Status Comments Mother Social History Tobacco Use Types Packs/Day Years Used Date Smoking Tobacco: Never Comments Unknown Sex and Gender Information Value Date Recorded Sex Assigned at Not on file Legal Sex Female 8:34 AM MST Gender Identity Not on file Sexual Orientation Not on file Last Filed Vital Signs Vital Sign Reading Time Taken Comments Blood Pressure 118/70 01/12/2019 12:01 AM CERTIFIED LOW VISION THERAPIST Pulse 84 01/12/2019 12:01 AM CERTIFIED LOW VISION THERAPIST Temperature 36.5 C (97.7 F) 01/12/2019 12:01 AM CERTIFIED LOW VISION THERAPIST Respiratory Rate - - Oxygen Saturation - - Inhaled Oxygen Concentration - - Weight 147 kg (323 lb) 05/18/2018 12:01 AM CDT Height 157.5 cm (5' 2) 01/12/2019 12:01 AM CERTIFIED LOW VISION THERAPIST Body Mass Index 59.08 05/18/2018 12:01 AM CDT Plan of Treatment Health Maintenance Due Date Last Done Comments Influenza Vaccine (#1) 2025 02/02/2019
--- OUTSIDE RECORDS SUMMARY | 2025-05-29 11:10 | XMS_ITS | Clinical Summary ---
Author Organization [facility] Address [address] [facility] [address] [place] [address] Phone Care Team Providers Care Service Support Representative Name Role Phone Yamil Rankin Rossy DO Primary Care Provider Unavaila ble Allergies Active Allergy Reactions Criticality Noted Date Comments Latex Rash High 08/31/2019 Penicillins 08/31/2019 Medications * This document contains information received from the source organization and may not represent a complete record from that organization. topiramate (TOPAMAX) 100 MG tablet TAKE 2 TABLETS BY MOUTH EVERY DAY 180 tablet 1 12/29/2022 Active carvedilol CR (COREG CR) 20 MG 24 hr capsule Take 1 capsule (20 mg total) by mouth at bed time Do not crush or chew. 90 capsule 1 01/05/2023 Active spironolactone (ALDACTONE) 25 MG tablet TAKE 1 TABLET BY MOUTH EVERY MORNING 90 tablet 04/12/2023 Active chlorthalidone 25 MG tablet TAKE 1 TABLET BY MOUTH DAILY IN THE MORNING 90 tablet 04/16/2023 Active Active Problems Problem Noted Date Diagnosed Date Chronic kidney disease, stage 2 (mild) 2 Social History Tobacco Use Types Packs/Day Years [...] Sign Reading Time Taken Comments Blood Pressure 120/70 01/05/2023 3:19 PM ORACLE APPLICATIONS ANALYST Pulse 68 01/05/2023 3:19 PM ORACLE APPLICATIONS ANALYST Temperature 36.1 C (97 F) 01/05/2023 3:19 PM ORACLE APPLICATIONS ANALYST Respiratory Rate 18 01/05/2023 3:19 PM ORACLE APPLICATIONS ANALYST Oxygen Saturation 99% 01/05/2023 3:19 PM ORACLE APPLICATIONS ANALYST Inhaled Oxygen Concentration - - Weight 156 kg (343 lb) 01/05/2023 3:19 PM ORACLE APPLICATIONS ANALYST Height 152.4 cm (5') 06/30/2022 2:50 PM CDT Body Mass Index 66.99 06/30/2022 2:50 PM CDT Plan of Treatment Health Maintenance Due Date Last Done Comments Breast Cancer Screening 1965 Pneumococcal Vaccine: 50+ Years (1 of 2 - PCV) 1984 Colorectal Cancer Screening: Annual FOBT 2014 Colorectal Cancer Screening: Colonoscopy 2014 Colorectal Cancer Screening: Sigmoidoscopy 2014 Influenza Vaccine (#1) 2025 0, 02/02/2019, 09/15/2017 Hepatitis B Vaccine Aged Out No longe r eligible based on patient's age to complete this topic Insurance [employer] [address] [place] [address] [place] [address] Care Teams Service Support Representative Relationship Specialty Start Date End Date Yamil Rankin DO PCP - General Internal Medicine 06/10/21
--- OUTSIDE RECORDS SUMMARY | 2025-05-29 11:10 | XMS_ITS | Referral Summary ---
Author Organization [facility] Address [address] [place] [address] Care Team Providers Care Automotive Technician Name Role Phone Yamil Rankin Primary Care Provider Gregory Agudelo MD Unavailable Allergies Active Allergy Reactions Criticality Noted Date [...] Intramuscular 11/10/2020,02/02/2019 Influenza, Trivalent, IM (MDV) 09/15/2019,2012 Social History Tobacco Use Types Packs/Day Years [...] on file Legal Sex Female 2:07 AM CONCRETE SCULPTOR Gender Identity Not on file Sexual Orientation Not on file Last Filed Vital Signs Vital Sign Reading Time Taken Comments Blood Pressure 126/79 01/01/2022 4:35 PM CONCRETE SCULPTOR Pulse 65 01/01/2022 4:35 PM CONCRETE SCULPTOR Temperature 36.9 C (98.4 F) 01/01/2022 4:35 PM CONCRETE SCULPTOR Respiratory Rate 22 01/01/2022 4:35 PM CONCRETE SCULPTOR Oxygen Saturation 92% 01/01/2022 4:35 PM CONCRETE SCULPTOR Inhaled Oxygen Concentration - - Weight 160.2 kg (353 lb 1.6 oz) 04/10/2021 2:34 PM CDT Height 153.7 cm (5' 0.51) 04/10/2021 2:34 PM CD T Body Mass Index 67.8 04/10/2021 2:34 PM CDT Plan of Treatment Not on file Insurance [facility] [id number] Advance Directives For more information, please contact: [phone] * Full Code (Latest Code Status on File) Date Activated Date Inactivated Comments 02/28/2021 7:56 PM 03/01/2021 6:40 PM Care Teams Automotive Technician Relationship Specialty Start Date End Date Yamil Rankin DO PCP - General Internal Medicine 01/23/21 Gregory Agudelo MD Referring Physician Obstetrics and Gynecology 01/23/21
--- OUTSIDE RECORDS SUMMARY | 2025-05-29 11:10 | XMS_ITS | Encounter Summary ---
Author Organization [facility] Address [address] [place] [address] Phone Care Team Providers Care Hanger Name Role Phone Jose Harrison MD Primary Care Provider [phone] Sheng Reid MD Primary Care Provider [phone] Jose Harrison MD Primary Care Provider [phone] Yamil Rankin DO Primary Care Provider [phone] Gregory Agudelo MD Unavailable [phone] Encounter Details Date Type Department Care Team (Latest Contact Info) Description 06/28/2017 Orders Only [facility] CONVERSION Scanning, Provider Social History Tobacco Use Types Packs/Day Years Used Date Smoking Tobacco: Never Alcohol Use Standard Drinks/Week Comments No 0 (1 standard drink = 0.6 oz pur e alcohol) Comments Unknown Sex and Gender Information Value Date Recorded Sex Assigned at Not on file Legal Sex Female 2:07 AM CRM COORDINATOR Gender Identity Not on file Sexual Orientation Not on file documented as of this encounter Plan of Treatment Not on file documented as of this encounter Procedures Procedure Name Priority Date/Time Associated Diagnosis Comments OBSTETRIC/GYNECOLOGY ULTRASONOGRAPHY REPORT 06/28/2017 1:31 PM CDT documented in this encounter Results * OBSTETRIC/GYNECOLOGY ULTRASONOGRAPHY REPORT (06/28/2017 1:31 PM CDT) Anatomical Region Laterality Modality Ultrasound us Provider Scanning IMG OB US PROCEDURES Final Res ult documented in this encounter Visit Diagnoses Not on filedocumented in this encounter Care Teams Hanger Relationship Specialty Start Date End Date Jose Harrison MD [address] [place] [id number] PCP - General 06/28/17 06/28/17 Sheng Reid MD [address] [place] [address] [id number] PCP - General 06/29/17 06/30/17 Jose Harrison MD [address] [place] [address] PCP - General 07/01/17 01/22/21 Yamil Rankin DO [address] [place] [address] [id number] PCP - General Internal Medicine 01/23/21 Gregory Agudelo MD [address] [place] [address] Referring Physician Obstetrics and Gynecology 01/23/21 documented as of this encounter
== END 2025-05-29 11:06 | disposition home or self-care (01) ==
PROVIDERS: PCP Family Medicine; Visit Provider Internal Medicine Hematology & Oncology
DX: D47.2 Monoclonal gammopathy (principal)
CPT/HCPCS: 77075

== ENCOUNTER 2025-07-18 14:14 | Outpatient (CLI) | payer OTHER, SELFPAY ==
--- NOTE | ~2025-07-18 | MM_ITS ---
EXAMINATION: MM screening [facility] BI [facility] HISTORY: Screening TECHNIQUE: Craniocaudal and mediolateral oblique 3-D tomosynthesis images were obtained and synthetic 2-D images were generated. CAD analysis was submitted and interpreted. COMPARISON: Comparison to multiple prior studies sequentially, with oldest reviewed study dated 09/20/2009. BREAST PARENCHYMAL COMPOSITION: There are scattered areas of fibroglandular density. FINDINGS: There is no evidence of suspicious mass, calcification, or architectural distortion to suggest malignancy in either breast. Scattered benign-appearing calcifications are present. IMPRESSION: 1. No mammographic evidence of malignancy. 2. Recommend routine screening mammography in one year. BI-RADS Category 2: Benign finding(s). Reviewed, dictated and finalized at location B.
== END 2025-07-18 14:15 | disposition home or self-care (01) ==
LOC: MICIMG 14:15
PROVIDERS: PCP Family Medicine; Visit Provider Emergency Medicine
DX: Z12.31 Encounter for screening mammogram for malignant neoplasm of breast (principal)
CPT/HCPCS: 77063; 77067